=== PATIENT | male | born 1985 | race Caucasian/White ===

== ENCOUNTER → 2016-03-23 | Outpatient (REF) | payer MEDICARE, MEDICAID ==
[~2016-03-23] MED LIST: /SENOSTA PO; ALBU20IN INH; ALBUTEROL NEB INH; AMOX875T PO; BISA10SU PR; CIPRHCOTIC AD; CLARITHROMYCIN PO; CLON2TAB PO; DIVA125C5 PO; FLEEENE4 PR; IPRA2IN INH; LEVA12INH INH; LEVA750T PO; MIRA255PW PO; NYAM10003 TOP; PARO10TA2 PO; REGL10TA6 PO; TIZA2TA PO; TIZANIDINE PO; TYLE325T5 PR; [UNRECOGNIZED DRUG - CODE] PO
== END | disposition home or self-care (01) ==
LOC: M LAB REF 09:11
PROVIDERS: ATTEND Physician Assistant Medical
DX: J02.9 Acute pharyngitis, unspecified (principal)

== ENCOUNTER → 2016-03-29 | Outpatient (CLI) | payer MEDICARE, MEDICAID ==
--- NOTE | 2016-03-30 09:15 | REP ---
Chest x-ray: Three views. History: Fever and cough. Comparison chest x-ray July 30, 2014. Findings: This patient has severe rotoscoliosis of the thoracolumbar spine as before. There is related hypoinflation of the lung antony bilaterally but particularly on the left which is the concave side of the thoracic curvature. Left hemidiaphragm is elevated and there is rather little aeration of the left lung. No infiltrate is seen however on either side. No definite effusion is seen. No bony destructive lesion is seen. Impression: Suboptimal visualization of the lungs related to the severe rotoscoliosis and hypoinflation. No definite infiltrate, pleural effusion or pulmonary edema is seen. Signed by Dylon Degroot MD 03/30/2016 10:40 A
== END | disposition home or self-care (01) ==
LOC: M ADAMS 15:02
PROVIDERS: ATTEND Nurse Practitioner Family
DX: R50.9 Fever, unspecified (principal); R05 Cough
CPT/HCPCS: 71020; G0463

== ENCOUNTER 2016-04-22 18:23 | Inpatient (IN) | payer MEDICARE, MEDICAID ==
[~2016-04-22] VITALS: Ht 167.6 cm; Wt 73.0 kg
[~2016-04-22 18:23] MED LIST changes: -ACET65SU PR; -ALBU83IN INH; -DEPA125C PO; -FLUT44IN INH; -IPRASOL4 INH; -KLON2TAB PO; -MIRA33504 PO; -PAXI10TA2 PO; -PROA1AER INH; -ZANA2CAP PO
[2016-04-22] MEDS ORDERED: IPRATROPIUM 0.5MG/ALBUTEROL 2.5MG INH SOL UD 3ML (DUONEB)(J7620) As Ordered ONE (19:29)
[2016-04-22 20:04] LABS: ABG BASE EXCESS -1.5 (-2.0-2.0); ABG DEVICE NASAL CANN; ABG HCO3 21.8 MEQ/L (22.0-26.0); ABG PARTIAL PRESSURE CO2 33.1 mmHg (35.0-45.0); ABG PARTIAL PRESSURE O2 35.7 mmHg (75.0-100.0); ABG STANDARD HCO3 22.5 MEQ/L (22.0-26.0); ABG TOTAL CO2 22.8 MEQ/L (22.0-29.0); ABG pH (ARTERIAL) 7.437 UNITS (7.350-7.450)
[2016-04-22 20:05] LABS: BASO % 0.3 % (0.0-1.0); EOS # 0.1 K/mm3 (0.0-0.50); EOS % 1.2 % (0.0-3.0); LARGE UNSTAINED CELL # 0.3 K/mm3 (0.0-0.4); LARGE UNSTAINED CELL % 2.5 % (0.0-4.0); LYMPH # 1.6 K/mm3 (1.5-6.5); LYMPH % 11.5 % (24.0-44.0); MEAN CORPUSCULAR HEMOGLOBIN 30.1 pg (27.0-33.0); MEAN CORPUSCULAR HGB CONC 34.1 g/dl (32.0-36.5); MEAN CORPUSCULAR VOLUME 88.2 fl (80.0-96.0); MONO # 1.5 K/mm3 (0.0-0.8); MONO % 12.4 % (0.0-5.0); NEUTROPHILS # 8.5 K/mm3 (1.8-7.7); NEUTROPHILS % 72.2 % (36.0-66.0); PLATELET COUNT, AUTOMATED 260 k/mm3 (150-450); RED CELL DISTRIBUTION WIDTH 13.2 % (11.5-14.5); WHITE BLOOD COUNT 11.7 K/mm3 (4.0-10.0)
[2016-04-22 20:25] LABS: ANION GAP 9 MEQ/L (8-16); BLOOD UREA NITROGEN 11 MG/DL (7-18); CALCIUM LEVEL 9.2 MG/DL (8.5-10.1); CARBON DIOXIDE LEVEL 27 MEQ/L (21-32); CHLORIDE LEVEL 102 MEQ/L (98-107); CREATININE FOR GFR 0.51 MG/DL (0.70-1.30); GLOMERULAR FILTRATION RATE > 60.0 (>60); GLUCOSE, FASTING 103 MG/DL (70-105); POTASSIUM SERUM 4.2 MEQ/L (3.5-5.1); SODIUM LEVEL 138 MEQ/L (136-145)
[2016-04-22] MEDS ORDERED: AZITHROMYCIN INJ 500MG VIAL (J0456) As Ordered ONE (20:57)
[2016-04-22] MEDS ORDERED: guaiFENesin ER 600 MG TAB PO SCH (21:00)
[2016-04-22] MEDS ORDERED: PAXI10TA2 PO (22:02)
[2016-04-22] MEDS ORDERED: PROA1AER INH (22:02)
[2016-04-22] MEDS ORDERED: ZANA2CAP PO (22:02)
[2016-04-22] MEDS ORDERED: ALBU83IN INH (22:02)
[2016-04-22] MEDS ORDERED: MIRA33504 PO (22:02)
[2016-04-22] MEDS ORDERED: FLUT44IN INH (22:02)
[2016-04-22] MEDS ORDERED: ACET65SU PR (22:02)
[2016-04-22] MEDS ORDERED: IPRASOL4 INH (22:02)
[2016-04-22] MEDS ORDERED: KLON2TAB PO (22:02)
[2016-04-22] MEDS ORDERED: DEPA125C PO ×2 (22:02)
[2016-04-22] MEDS ORDERED: ACETAMINOPHEN 650 MG SUPP PR PRN (22:15)
[2016-04-22] MEDS ORDERED: BISACODYL 10 MG SUPP PR PRN (22:15)
[2016-04-22] MEDS ORDERED: ONDANSETRON 4MG/2ML VIAL (J2405) IV PRN (22:15)
[2016-04-22 23:00] VITALS: BP 149/95
--- NOTE | 2016-04-22 23:10 | REPUSA ---
CT of the chest without contrast Clinical statement: Shortness of breath. Technique: Multiple axial CT images were obtained with 5 mm cuts through the chest without administra tion of contrast. No comparison is available. Findings: There is no thoracic lymphadenopathy. The visualized portions of the thyroid gland is unrem arkable. There are no pericardial or pleural effusions. There is consolidation and infiltrate in the left upper lobe. Limited imaging of the upper abdomen does not demonstrate any acute abnormalities. T here are no suspicious osseous lesions. Severe dextroscoliosis is noted. Impression: 1. Left upper lobe pneumonia. 2. Severe scoliosis.
--- NOTE | 2016-04-22 23:18 | HPE ---
DATE OF ADMISSION: 04/22/2016 PRIMARY CARE PROVIDER: Dr. Edwards ROUGH ROUNDER: Dr. Palma. CHIEF COMPLAINT: Shortness of breath and congestion. HISTORY OF THE PRESENT ILLNESS: This is a 30-year-old male patient with underlying medical history of cerebral palsy, seizure disorder, history of recurrent pneumonia, patient has severe scoliosis, kyphosis due to cerebral palsy, subsequently has a lot of problems with restrictive lung disease, has a lot of problems clearing mucus, especially in the left lung. At baseline, the patient is bed-bound, going to [facility] ([facility]) from home, minimally verbal - one to two words, not on oxygen. The patient, as per family, returned from [facility] on Monday with some congestion. Subsequently, on Monday, the patient's symptoms got worse and progressively worsening, suctioning by family with clear mucus. The patient is not able to clear much of his mucus. He wears a vest for chest PT at home. No sick contact at home but possibly sick contact at [facility]. No fevers or chills reported by family. Not on oxygen at home. Requiring 40% Ventimask at emergency room. Further history not possible given the patient is nonverbal. Family denies noticing any diarrhea, nausea or vomiting. The patient is on grounded diet with thin liquid. PAST MEDICAL HISTORY: Restrictive lung disease due to Scoliosis and kyphosis. Kyphosis and scoliosis due to cerebral palsy. Anxiety and depression. History of seizure disorder. Multiple episodes of pneumonia in the past. PAST SURGICAL HISTORY: Right hip arthroplasty. Bilateral knee arthroplasty. Bilateral ear surgery. SOCIAL HISTORY: No drugs, no smoking, no alcohol. The patient requires assistance with activities of daily living, bed bound. FAMILY HISTORY: Noncontributory. REVIEW OF SYSTEMS: Negative except for those mentioned in the history of the present illness but very limited given patient is nonverbal, mostly, review of systems are from family. ALLERGIES: AMOXICILLIN, ASPARTAME, CEPHALOSPORIN, CLAVULANIC ACID, CONTRAST MEDIA, MUSHROOMS, PEANUTS, SEAFOOD, BACTRIM, TROPICAL FRUITS. HOME MEDICATIONS: - acetaminophen 650 mg per rectal every 6 hours as needed - albuterol nebulizer every 4 hours as needed - ProAir inhalation every 4 hours as needed - DuoNebs every 4 hours as needed - Klonopin 2 mg by mouth nightly - Depakote 375 mg by mouth daily and 500 mg by mouth nightly - Flovent inhalation twice a day - Paxil 10 mg by mouth twice a day - MiraLAX 17 grams by mouth daily as needed - Zanaflex 2 mg by mouth nightly PHYSICAL EXAMINATION: VITAL SIGNS: Temperature 99.6, pulse 140, respirations 20, blood pressure 153/98 , pulse oximetry 89% on 40% Ventimask. GENERAL: Patient mild dyspnea, on Ventimask, nonverbal, alert. HEENT: Normocephalic, atraumatic. PULMONARY: Bilateral crackles, diminished breath sounds on the left side. CARDIAC: Tachycardia, regular. S1, S2. ABDOMEN: Soft, mild distention. Hypoactive bowel sounds. Nontender. EXTREMITIES: Contracted. Trace edema bilateral lower extremities. LABORATORY: WBC 11.7, hemoglobin and hematocrit 13.8 over 40.5, platelets 260. Chemistry: Sodium 138, potassium 4.2, chloride 102, bicarbonate 27, BUN 11, creatinine 0.51, C-reactive protein 6.5, lactic acid 1.1. AB.44, 33.1, 35.7, 21.8. Chest x-ray shows profound scoliosis with limited visualization of the lung, completely opacified left hemithorax, questionable mucous plugging and left lung atelectasis. ASSESSMENT AND PLAN: This is a 30-year-old male patient with underlying medical history of cerebral palsy, severe scoliosis and kyphosis with restrictive lung disease and seizure disorder, presented with acute hypoxic respiratory failure, likely secondary to community-acquired bacterial pneumonia versus mucous plugging. Problems: 1. Acute hypoxic respiratory failure, likely secondary to restrictive lung disease with underlying kyphoscoliosis and left sided community acquired pneumonia, and also mucous plugging. Will obtain CT chest. Also, oxygen supplementation, chest PT, Acapella. Started on Rocephin. Followup cultures, sputum, respiratory panel. Based on CT scan, will consider consulting pulmonary if patient does not improve. In the meantime, continue nebulizer treatment, Mucinex, oxygen supplementation, chest PT, suctioning. pulse ox improved on 93% after patient coughed up copious amount of mucous 2. Seizure disorder. Continue home medication. 3. Constipation. Continue home medication. Bowel regimen as ordered. 4. Cerebral palsy. Supportive care. One-to-one sitter to prevent the patient from removing oxygen supplementation. 5. Sinus tachycardiac likely 2/2 to nebulizer treatment, infection and hypoxia, patient was tachycardiac during previous hospitalization IVF, thyroid profile, ekg, cardiac marker, tele, continue to monitor 5. Deep vein thrombosis (DVT) prophylaxis. Heparin subcu. DISPOSITION PLANNING: Pending CT scan, clinical improvement. MTDD
[2016-04-22] MEDS ORDERED: PARoxetine 10MG TABLET As Ordered ONE (23:37)
[2016-04-22] MEDS ORDERED: tiZANidine 4 MG TAB As Ordered ONE (23:38)
[2016-04-22] MEDS ORDERED: HEPARIN SOD (PORCINE) 5000 UNITS/ML VIAL As Ordered ONE (23:38)
[2016-04-22] MEDS ORDERED: LevoFLOXacin/DEXTROSE 750 MG/150 ML BAG (J1956) As Ordered ONE (23:39)
[2016-04-22 23:42] LABS: T UPTAKE 31 % (33-40)
[2016-04-22] MEDS: LevoFLOXacin IV 750 MG in APPROPRIATE DILUENT 1 EA IV SCH (23:50)
[2016-04-22] MEDS: guaiFENesin 200 MG TAB PO SCH (23:51)
[2016-04-22] MEDS: tiZANidine 4 MG TAB PO SCH (23:51)
[2016-04-22] MEDS: DIVALPROEX SPRINKLE 125 MG CAP PO SCH (23:51)
[2016-04-22] MEDS: HEPARIN SOD (PORCINE) 5000 UNITS/ML VIAL SC SCH (23:51)
[2016-04-22] MEDS: SENOKOT S TAB PO SCH (23:51)
[2016-04-22] MEDS: PARoxetine 10MG TABLET PO SCH (23:52)
[2016-04-22] MEDS: LR 1,000 ML IV SCH (23:56)
[2016-04-23] VITALS (16 sets, daily range): BP systolic 116–168; BP diastolic 67–86; O2SAT 84–95
[2016-04-23] MEDS ORDERED: IPRATROPIUM 0.5MG/ALBUTEROL 2.5MG INH SOL UD 3ML (DUONEB)(J7620) As Ordered ONE (00:25)
[2016-04-23] MEDS: FLUTICASONE HFA 44 MCG 10.6GM INHALER (FLOVENT) INH SCH ×3 (00:38→20:20)
[2016-04-23] MEDS: IPRATROPIUM 0.5MG/ALBUTEROL 2.5MG INH SOL UD 3ML (DUONEB)(J7620) NEB SCH ×4 (00:38→20:19)
--- NOTE | 2016-04-23 01:29 | EDDOCDS ---
Physician Documentation [facility] Name: Terry Vaughan Age: 30 yrs Sex: Male : 1985 Arrival Date: 04/22/2016 Time: 18:23 Bed 20 Private MD: Giselle Ray Disposition: 04/22/16 21:05 Hospitalization ordered by Sandra Richards for Inpatient Admission. Preliminary diagnosis are Hypoxemia, Acute and chronic respiratory failure with hypoxia. - [facility] - Status is Inpatient Admission. brooke - Condition is Stable. - Problem is chronic. - Symptoms have improved. Historical: - Allergies: Rocephin (Unknown); Augmentin (Vomit); Bactrim (Vomit); - Home Meds: 1. Depakote 375 mg am 500 mg pm Oral 2 times per day 2. Klonopin 2 mg Oral tab nightly 3. Paxil 10 mg Oral tab 1 tab twice a day 4. Zanaflex 2 mg Oral tab nightly 5. albuterol sulfate 2.5 mg /3 mL (0.083 %) Nebulizer nebu every 6 hours 6. ipratropium-albuterol 0.5 mg-3 mg(2.5 mg base)/3 mL Inhl nebu 7. Flovent 44 mcg/actuation Inhl aero 2 puffs 2 times per day 8. albuterol sulfate 90 mcg/actuation Inhl aepb every 4 hours 9. 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 No barriers to communication noted. - : The pt / caregiver states he / she is not on anticoagulants. Home medication list is obtained from the patient. - Exposure Risk Screening:: None identified. Vital Signs: 04/22 18:43 BP 153 / 98; Resp 20; Temp 99.6(TE); Pulse Ox 85% on R/A; Weight 74.84 kg / 164.99 lbs; rs3 Height 5 ft. 4 in. (162.56 cm); Pain 0/10; 18:48 Pulse 149; Pulse Ox 88% on 4 lpm NC; rs3 19:00 Pulse 138 MON; Pulse Ox 87% ; mgs 19:15 Pulse 144 MON; Pulse Ox 89% ; mgs 19:30 Pulse 146 MON; Pulse Ox 87% ; mgs 19:45 Pulse 146 MON; Pulse Ox 86% ; mgs 20:00 Pulse 140 MON; Pulse Ox 92% ; mgs 20:21 BP 7 / ???; nk1 20:30 Pulse 160 MON; Pulse Ox 87% ; mgs 21:00 Pulse 144 MON; Pulse Ox 84% ; mgs 21:17 BP 120 / 69 (auto/); mgs 21:17 Pulse 144 MON; Pulse Ox 89% ; mgs 18:43 Body Mass Index 28.32 (74.84 kg, 162.56 cm) rs3 MDM: 19:24 IV Saline Lock ordered. cs11 19:24 -Blood Culture (Adults Only), peripheral from different site, or from device/port/PICC cs11 etc. if present ordered. 19:24 Call Respiratory ordered. cs11 19:24 Albuterol-Ipratropium 1 neb Nebulizer every 20 minutes x3 ordered. cs11 19:24 Call Respiratory ordered. cs11 19:24 -Blood Culture Ordered. EDMS 19:24 Lactic Acid (Malcolm tube on ice) Ordered. EDMS 19:24 CBC with Diff Ordered. EDMS 19:24 MED Profile Ordered. EDMS 19:24 DEPAKOTE Ordered. EDMS 19:24 Ammonia ([place] Tube on Ice, Not [place]a [place]) Ordered. EDMS 19:24 -Arterial Blood Gas Ordered. EDMS 19:25 Call Respiratory complete. ml3 19:25 Call Respiratory complete. ml3 19:27 -Blood Culture (Adults Only), peripheral from different site, or from device/port/PICC ml3 etc. if present complete. 19:28 BLOOD CULTURES Ordered. EDMS 19:56 Financial registration complete. zo 20:11 [facility] Payment Agreement was scanned into [employer] and attached to record. zo 20:16 CBC with Diff Reviewed. cs11 20:16 -Arterial Blood Gas Reviewed. cs11 20:17 Oxygen (enter rate/delivery method/parameters) ordered. cs11 20:20 azithromycin 500 mg IVPB once over 1 hrs; dilute in 250mL of D5W or NS ordered. cs11 20:49 MED Profile Reviewed. cs11 20:49 Ammonia ([place] Tube on Ice, Not [place]a [place]) Reviewed. cs11 20:49 Lactic Acid (Malcolm tube on ice) Reviewed. cs11 20:49 DEPAKOTE Reviewed. cs11 20:55 BED REQUEST+ADM ordered. EDMS 21:58 RESPIRATORY PANEL Ordered. EDMS 21:58 SPUTUM CULTURE AND GRAM STAIN Ordered. EDMS 22:00 CT Chest Without Contrast Ordered. EDMS 22:02 AMMONIA Ordered. EDMS 22:02 C REACTIVE PROTEIN QUANTITATIV Ordered. EDMS 22:02 COMPLETE BLOOD COUNT Ordered. EDMS 22:02 BASIC METABOLIC PROFILE Ordered. EDMS 22:02 MAGNESIUM LEVEL Ordered. EDMS 22:03 LIVER PROFILE Ordered. EDMS 22:03 PHYSICAL THERAPY EVAL & TREAT ordered. EDMS 22:04 REGULAR DIET ordered. EDMS 22:09 Admission / Observation Status ordered. EDMS 22:15 ELECTROCARDIOGRAM ADULT ordered. EDMS 22:31 T-Sheet-- Draft Copy was scanned into [employer] and attached to record. klr 23:12 CARDIAC MARKER PANEL Ordered. EDMS Administered Medications: 20:02 Drug: Albuterol-Ipratropium 1 neb [ipratropium-albuterol 0.5 mg-3 mg(2.5 mg base)/3 mL nk1 nebulization soln (1 neb)] Route: Nebulizer; 20:08 Follow up: Response: Nebulizer completed nk1 20:12 Drug: Albuterol-Ipratropium 1 neb [ipratropium-albuterol 0.5 mg-3 mg(2.5 mg base)/3 mL nk1 nebulization soln (1 neb)] Route: Nebulizer; 20:19 Drug: Albuterol-Ipratropium 1 neb [ipratropium-albuterol 0.5 mg-3 mg(2.5 mg base)/3 mL nk1 nebulization soln (1 neb)] Route: Nebulizer; 20:21 Follow up: BP 7 / ??? nk1 20:21 Follow up: Response: Nebulizer completed nk1 21:13 Drug: azithromycin 500 mg [azithromycin 500 mg intravenous solution] Route: IVPB; mgs Infused Over: 1 hrs; Site: left hand; Signatures: Dispatcher MedHoUpdox EDMS Cathi Rosario RN RN jan Lopresti, Mary-Elizabeth, [employer] Stock Clerk Unit ml3 Zeina Armijo RosemaryRN RN rs3 Gian Dyson, DO cs11 Attila Crawford RN RN Tiffany Ramirez Steven, DOROTHY RN Belle Salomon nk1 The chart was reviewed and I authenticate all verbal orders and agree with the evaluation and treatment provided.Corrections: (The following items were deleted from the chart) 22:00 21:58 C REACTIVE PROTEIN QUANTITATIV ordered. EDMS EDMS 22:09 21:04 CT ANGIO CHEST+CT ordered. EDMS EDMS 23:26 23:12 CARDIAC MARKER PANEL ordered. EDMS EDMS 23:27 23:12 THYROID PROFILE ordered. EDMS EDMS Attachments: 20:11 [facility] [place] Payment Agreement zo 22:31 T-Sheet-- Draft Copy klr MTDD
--- NOTE | 2016-04-23 01:29 | EDDOCDS ---
Nurse's Notes [facility] Name: Terry Vaughan Age: 30 yrs Sex: Male : 1985 Arrival Date: 04/22/2016 Time: 18:23 Bed 20 Private MD: Giselle Ray Diagnosis: Hypoxemia;Acute and chronic respiratory failure with hypoxia Presentation: 04/22 18:28 Presenting complaint: EMS states: was seen at primary provider office for difficulty rs3 breathing/fever today. had chest x-ray done. Albuterol treatment given at Dr's office. Duoneb treatment given en route. H/o cerebral palsy, pneumonia. Adult Sepsis Screening: The patient does not have new or worsening altered mentation. Patient's respiratory rate is less than 22. Systolic blood pressure is greater than 100. Patient has a qSOFA score of 0- Negative Sepsis Screen. Suicide/Homicide risk assessment- the patient denies having any suicidal and/or homicidal ideations and does not present with any other emotional, behavioral or mental health complaints. Status: Patient is not a student services representative or dependent. Transition of care: patient was not received from another setting of care. 18:28 Acuity: NIRMALA Level 3 rs3 18:28 Method Of Arrival: Ambulance rs3 Triage Assessment: 18:56 HIV screening NA for this visit. Respiratory: Onset: The symptoms/episode rs3 began/occurred gradually. Historical: - Allergies: Rocephin (Unknown); Augmentin (Vomit); Bactrim (Vomit); - Home Meds: 1. Depakote 375 mg am 500 mg pm Oral 2 times per day 2. Klonopin 2 mg Oral tab nightly 3. Paxil 10 mg Oral tab 1 tab twice a day 4. Zanaflex 2 mg Oral tab nightly 5. albuterol sulfate 2.5 mg /3 mL (0.083 %) Nebulizer nebu every 6 hours 6. ipratropium-albuterol 0.5 mg-3 mg(2.5 mg base)/3 mL Inhl nebu 7. Flovent 44 mcg/actuation Inhl aero 2 puffs 2 times per day 8. albuterol sulfate 90 mcg/actuation Inhl aepb every 4 hours 9. 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 No barriers to communication noted. - : The pt / caregiver states he / she is not on anticoagulants. Home medication list is obtained from the patient. - Exposure Risk Screening:: None identified. Screenin:53 Screening information is obtained from family members. Fall risk: At risk due to rs3 apparent chemical impairment, gait disturbance, immobility. Assistance ADL's: Requires assistance with meal preparation, this assistance is provided by family members, bathing, assistance is provided by family members, dressing, assistance is provided by family members, toileting, assistance is provided by family members, housework, assistance is provided by family members, medication administration, assistance is provided by family members. Abuse/DV Screen: The patient / caregiver reports he/she is: not in a situation that causes fear, pain or injury. Nutritional screening: No deficits noted. Advance Directives: Currently, there is a health care proxy, Dianna Cooper (mother). home support is adequate. Assessment: 18:54 General: Appears in no apparent distress, Behavior is cooperative. Pain: Unable to use rs3 pain scale. non verbal. Cardiovascular: Chest pain unable to assess. Respiratory: Airway is patent Respiratory effort is even, labored, Respiratory pattern is regular, symmetrical, Breath sounds are coarse bilaterally. Derm: Skin is pink, warm & dry. 19:22 General: Appears in no apparent distress, Behavior is cooperative. Cardiovascular: mgs Capillary refill < 3 seconds. Respiratory: Airway is patent Respiratory effort is even, unlabored, Respiratory pattern is regular, symmetrical, Breath sounds are coarse bilaterally. Derm: Skin is pink, warm & dry. 20:09 General: Appears in no apparent distress, Behavior is cooperative. Cardiovascular: mgs Capillary refill < 3 seconds. Respiratory: Airway is patent Respiratory effort is even, unlabored, Respiratory pattern is regular, symmetrical. Derm: Skin is pink, warm & dry. 21:15 General: Appears in no apparent distress, Behavior is cooperative. Cardiovascular: mgs Capillary refill < 3 seconds. Respiratory: Airway is patent Respiratory effort is even, unlabored, Respiratory pattern is regular, symmetrical. Derm: Skin is pink, warm & dry. 22:12 Adult Sepsis Screening: The patient does not have new or worsening altered mentation. mgs Patient's respiratory rate is less than 22. Systolic blood pressure is greater than 100. Patient has a qSOFA score of 0- Negative Sepsis Screen. General: Appears in no apparent distress, Behavior is cooperative. Cardiovascular: Capillary refill < 3 seconds. Respiratory: Airway is patent Respiratory effort is even, unlabored, Respiratory pattern is regular, symmetrical. Derm: Skin is pink, warm & dry. 23:00 General: see [facility] for further documentation. mar 21 00:45 Cardiovascular: Rhythm is sinus tachycardia No ectopy. mar Vital Signs: 04/22 18:43 BP 153 / 98; Resp 20; Temp 99.6(TE); Pulse Ox 85% on R/A; Weight 74.84 kg; Height 5 ft. rs3 4 in. (162.56 cm); Pain 0/10; 18:48 Pulse 149; Pulse Ox 88% on 4 lpm NC; rs3 19:00 Pulse 138 MON; Pulse Ox 87% ; mgs 19:15 Pulse 144 MON; Pulse Ox 89% ; mgs 19:30 Pulse 146 MON; Pulse Ox 87% ; mgs 19:45 Pulse 146 MON; Pulse Ox 86% ; mgs 20:00 Pulse 140 MON; Pulse Ox 92% ; mgs 20:21 BP 7 / ???; nk1 20:30 Pulse 160 MON; Pulse Ox 87% ; mgs 21:00 Pulse 144 MON; Pulse Ox 84% ; mgs 21:17 BP 120 / 69 (auto/); mgs 21:17 Pulse 144 MON; Pulse Ox 89% ; mgs 18:43 Body Mass Index 28.32 (74.84 kg, 162.56 cm) rs3 Vitals: 18:43 Log In Time N/A - ambulance arrival. rs3 ED Course: 18:24 Patient visited by Alis Carlson, Interlocking Machine Operator. lbd 18:24 Giselle Ray is Private Physician. lbd 18:24 Ivonne Jackson,DOROTHY is Primary Nurse. lbd 18:24 Patient moved to Waiting lbd 18:24 Patient moved to 14 lbd 18:31 Triage Initiated rs3 19:01 Gian Dyson DO is Attending Physician. cs11 19:02 Patient visited by Gian Dyson DO. cs11 19:23 Patient visited by Attila Crawford RN. mgs 19:49 Ammonia ([place] Tube on Ice, Not [place]a [place]) Sent. mgs 19:49 DEPAKOTE Sent. mgs 19:49 MED Profile Sent. mgs 19:49 CBC with Diff Sent. mgs 19:49 Lactic Acid (Malcolm tube on ice) Sent. mgs 19:50 -Blood Culture Sent. mgs 19:50 Inserted saline lock: 22 gauge in left hand and blood collected. The patient tolerated mgs the procedure well. 20:09 Patient visited by Attila Crawford RN. mgs 20:11 [facility] Payment Agreement was scanned into [employer] and attached to record. zo 20:14 BLOOD CULTURES Sent. cln 21:05 Sandra Richards is Hospitalizing Provider. cs11 21:16 Patient visited by Attila Crawford RN. mgs 22:13 Patient visited by Attila Crawford RN. mgs 22:14 Patient moved to Admit Hold ml3 22:31 T-Sheet-- Draft Copy was scanned into [employer] and attached to record. klr 22:51 Patient moved to Mar 23:14 CT Chest Without Contrast Returned. EDMS Administered Medications: 20:02 Drug: Albuterol-Ipratropium 1 neb [ipratropium-albuterol 0.5 mg-3 mg(2.5 mg base)/3 mL nk1 nebulization soln (1 neb)] Route: Nebulizer; 20:08 Follow up: Response: Nebulizer completed nk1 20:12 Drug: Albuterol-Ipratropium 1 neb [ipratropium-albuterol 0.5 mg-3 mg(2.5 mg base)/3 mL nk1 nebulization soln (1 neb)] Route: Nebulizer; 20:19 Drug: Albuterol-Ipratropium 1 neb [ipratropium-albuterol 0.5 mg-3 mg(2.5 mg base)/3 mL nk1 nebulization soln (1 neb)] Route: Nebulizer; 20:21 Follow up: BP 7 / ??? nk1 20:21 Follow up: Response: Nebulizer completed nk1 21:13 Drug: azithromycin 500 mg [azithromycin 500 mg intravenous solution] Route: IVPB; mgs Infused Over: 1 hrs; Site: left hand; RT: 20:02 Initial Med Neb Given as ordered Patient tolerated procedure well without adverse nk1 effect. Respiratory: Airway is patent Respiratory effort is even, labored, Respiratory pattern is tachypnea with weak coughing Breath sounds are coarse Breath sounds with rhonchi bilaterally. in right upper lobe, left upper lobe, left posterior upper lobe, right posterior upper lobe, left posterior lower lobe, right posterior middle lobe and right posterior lower lobe. 20:03 ABG's drawn from left radial artery pressure held for 5 minutes no bleeding noted nk1 pressure bandage applied specimen sent pt. tolerated well. 20:03 O2 via nasal cannula \T\ 4L/min. nk1 20:12 Subsequent Med Neb Given as ordered Patient tolerated procedure well without adverse nk1 effect. Respiratory: Breath sounds are coarse Breath sounds with rhonchi bilaterally. in right upper lobe, left upper lobe, left posterior upper lobe, right posterior upper lobe, left posterior lower lobe, right posterior middle lobe and right posterior lower lobe. 20:18 Subsequent Med Neb Given as ordered Patient tolerated procedure well without adverse nk1 effect. 20:20 Respiratory: Respiratory effort is even, labored, Respiratory pattern is tachypnea nk1 Breath sounds are coarse Breath sounds with rhonchi bilaterally. Order Results: Lab Order: Lactic Acid (Malcolm tube on ice); SPEC'M 04/22/16 19:45 Test: LACTIC ACID SEPSIS PROTOCOL; Value: 1.1; Range: 0.4-2.0; Units: MMOL/L; Status: F Lab Order: CBC with Diff; SPEC'M 04/22/16 19:45 Test: WHITE BLOOD COUNT; Value: 11.7; Range: 4.0-10.0; Abnormal: Above high normal; Units: K/mm3; Status: F Test: RED BLOOD COUNT; Value: 4.59; Range: 4.30-6.10; Units: M/mm3; Status: F Test: HEMOGLOBIN; Value: 13.8; Range: 14.0-18.0; Abnormal: Below low normal; Units: g/dl; Status: F Test: HEMATOCRIT; Value: 40.5; Range: 42.0-52.0; Abnormal: Below low normal; Units: %; Status: F Test: MEAN CORPUSCULAR VOLUME; Value: 88.2; Range: 80.0-96.0; Units: fl; Status: F Test: MEAN CORPUSCULAR HEMOGLOBIN; Value: 30.1; Range: 27.0-33.0; Units: pg; Status: F Test: MEAN CORPUSCULAR HGB CONC; Value: 34.1; Range: 32.0-36.5; Units: g/dl; Status: F Test: RED CELL DISTRIBUTION WIDTH; Value: 13.2; Range: 11.5-14.5; Units: %; Status: F Test: PLATELET COUNT, AUTOMATED; Value: 260; Range: 150-450; Units: k/mm3; Status: F Test: NEUTROPHILS %; Value: 72.2; Range: 36.0-66.0; Abnormal: Above high normal; Units: %; Status: F Test: LYMPH %; Value: 11.5; Range: 24.0-44.0; Abnormal: Below low normal; Units: %; Status: F Test: MONO %; Value: 12.4; Range: 0.0-5.0; Abnormal: Above high normal; Units: %; Status: F Test: EOS %; Value: 1.2; Range: 0.0-3.0; Units: %; Status: F Test: BASO %; Value: 0.3; Range: 0.0-1.0; Units: %; Status: F Test: LARGE UNSTAINED CELL %; Value: 2.5; Range: 0.0-4.0; Units: %; Status: F Test: NEUTROPHILS #; Value: 8.5; Range: 1.8-7.7; Abnormal: Above high normal; Units: K/mm3; Status: F Test: LYMPH #; Value: 1.6; Range: 1.5-6.5; Units: K/mm3; Status: F Test: MONO #; Value: 1.5; Range: 0.0-0.8; Abnormal: Above high normal; Units: K/mm3; Status: F Test: EOS #; Value: 0.1; Range: 0.0-0.50; Units: K/mm3; Status: F Test: BASO #; Value: 0.0; Range: 0.0-0.2; Units: K/mm3; Status: F Test: LARGE UNSTAINED CELL #; Value: 0.3; Range: 0.0-0.4; Units: K/mm3; Status: F Lab Order: MED Profile; SPEC'04/22/16 19:45 Test: GLUCOSE, FASTING; Value: 103; Range: 70-105; Units: MG/DL; Status: F Test: BLOOD UREA NITROGEN; Value: 11; Range: 7-18; Units: MG/DL; Status: F Test: CREATININE FOR GFR; Value: 0.51; Range: 0.70-1.30; Abnormal: Below low normal; Units: MG/DL; Status: F Test: GLOMERULAR FILTRATION RATE; Value: > 60.0; Range: >60; Status: F Test: SODIUM LEVEL; Value: 138; Range: 136-145; Units: MEQ/L; Status: F Test: POTASSIUM SERUM; Value: 4.2; Range: 3.5-5.1; Units: MEQ/L; Status: F Test: CHLORIDE LEVEL; Value: 102; Range: 98-107; Units: MEQ/L; Status: F Test: CARBON DIOXIDE LEVEL; Value: 27; Range: 21-32; Units: MEQ/L; Status: F Test: ANION GAP; Value: 9; Range: 8-16; Units: MEQ/L; Status: F Test: CALCIUM LEVEL; Value: 9.2; Range: 8.5-10.1; Units: MG/DL; Status: F Test Note: ; Units are mL/min/1.73 m2 Chronic Kidney Disease Staging per NKF: Stage I & II GFR >=60 Normal to Mildly Decreased Stage III GFR 30-59 Moderately Decreased Stage IV GFR 15-29 Severely Decreased Stage V GFR <15 Very Little GFR Left ESRD GFR <15 on GRADUATE ASSISTANT Lab Order: DEPAKOTE; SPEC'04/22/16 19:45 Test: VALPROIC ACID (DEPAKOTE); Value: 96.5; Range: 50.0-100.0; Units: UG/ML; Status: F Lab Order: Ammonia ([place] Tube on Ice, Not [place]); 04/22/16 19:45 Test: AMMONIA; Value: 44; Range: <32; Abnormal: Above high normal; Units: uMOL/L; Status: F Lab Order: -Arterial Blood Gas; SPEC04/22/16 19:49 Test: ABG pH (ARTERIAL); Value: 7.437; Range: 7.350-7.450; Units: UNITS; Status: F Test: ABG PARTIAL PRESSURE CO2; Value: 33.1; Range: 35.0-45.0; Abnormal: Below low normal; Units: mmHg; Status: F Test: ABG PARTIAL PRESSURE O2; Value: 35.7; Range: 75.0-100.0; Abnormal: Critical Low; Units: mmHg; Status: F Test: ABG TOTAL CO2; Value: 22.8; Range: 22.0-29.0; Units: MEQ/L; Status: F Test: ABG HCO3; Value: 21.8; Range: 22.0-26.0; Abnormal: Below low normal; Units: MEQ/L; Status: F Test: ABG BASE EXCESS; Value: -1.5; Range: -2.0-2.0; Status: F Test: ABG STANDARD HCO3; Value: 22.5; Range: 22.0-26.0; Units: MEQ/L; Status: F Test: ABG O2 SATURATION; Value: 70.3; Range: 95.0-99.0; Abnormal: Below low normal; Units: %; Status: F Test: ABG DEVICE; Value: NASAL BASIL; Status: F Lab Order: C REACTIVE PROTEIN QUANTITATIV; SPEC'M 04/22/16 19:45 Test: C REACTIVE PROTEIN QUANTITATIV; Value: 6.52; Range: 0.00-0.30; Abnormal: Above high normal; Units: MG/DL; Status: F Lab Order: CARDIAC MARKER PANEL; SPEC' 04/22/16 19:45 Test: CPK CREATINE PHOSPHOKINASE; Value: 198; Range: 39-308; Units: U/L; Status: F Test: CK-MB VALUE MASS; Value: 1.7; Range: 0.0-3.6; Units: NG/ML; Status: F Test: MB/CK RELATIVE INDEX; Range: < OR =4; Status: I Test: TROPONIN I; Value: < 0.02; Range: < 0.10; Units: NG/ML; Status: F Test Note: ; Troponin I Reference Interval for [employer] LOCI: 99th Percentile= 0.00-0.045 ng/ml Risk Stratification: <= 0.10 ng/ml Decreased Risk for Adverse Clinical Events. 0.10-1.50 ng/ml Increased Risk for Adverse Clinical Events. Evaluation of additional criterion and/or repeat testing in 2-6 hours is suggested to rule out myocardial damage. >= 1.50 ng/ml Indicative of Myocardial Injury. Lab Order: THYROID PROFILE; SPEC'M 04/22/16 19:45 Test: T UPTAKE; Value: 31; Range: 33-40; Abnormal: Below low normal; Units: %; Status: F Test: THYROXINE (T4); Value: 11.9; Range: 4.5-12.0; Units: UG/DL; Status: F Test: FREE THYROXINE INDEX; Range: 1.4-3.8; Units: %; Status: I Test: THYROID STIMULATING HORMONE; Value: 3.860; Range: 0.358-3.740; Abnormal: Above high normal; Units: uIU/ML; Status: F Radiology Order: CT Chest Without Contrast Test: CT Chest Without Contrast REASON FOR EXAMINATION: Shortness of Breath; ; CT of the chest without contrast; Clinical statement: Shortness of breath.; Technique: Multiple axial CT images were obtained with 5 mm cuts through the chest without administra; tion of contrast.; No comparison is available.; Findings: There is no thoracic lymphadenopathy. The visualized portions of the thyroid gland is unrem; arkable. There are no pericardial or pleural effusions. There is consolidation and infiltrate in the; left upper lobe. Limited imaging of the upper abdomen does not demonstrate any acute abnormalities. T; here are no suspicious osseous lesions. Severe dextroscoliosis is noted.; Impression:; 1. Left upper lobe pneumonia.; 2. Severe scoliosis.; ; Outcome: 21:05 Decision to Hospitalize by Provider. cs11 04/23 01:28 Patient left the ED. brooke Signatures: Dispatcher [employer] EDMS Alis Carlson, Interlocking Machine Operator Unit lbd Cathi Rosario RN RN jan Lopresti, Mary-Elizabeth, Interlocking Machine Operator Unit ml3 Belle Sagastume,RT RT nk1 Zeina Armijo Rosemary, RN RN rs3 Gian Dyson DO DO cs11 Attila Crawford RN RN mgs Amaris Travis CONFIGURATION CONSULTANT CONFIGURATION CONSULTANT cln Tiffany Hsu MTDD
[2016-04-23] MEDS: clonazePAM 1 MG TAB PO SCH ×2 (01:55→20:45)
[2016-04-23] MEDS: HEPARIN SOD (PORCINE) 5000 UNITS/ML VIAL SC SCH ×3 (05:36→20:46)
[2016-04-23 05:55] LABS: MEAN CORPUSCULAR HEMOGLOBIN 29.5 pg (27.0-33.0); MEAN CORPUSCULAR HGB CONC 33.4 g/dl (32.0-36.5); MEAN CORPUSCULAR VOLUME 88.3 fl (80.0-96.0); RED CELL DISTRIBUTION WIDTH 13.2 % (11.5-14.5); WHITE BLOOD COUNT 10.9 K/mm3 (4.0-10.0)
[2016-04-23 06:15] LABS: ALBUMIN 3.1 GM/DL (3.2-5.2); ALBUMIN/GLOBULIN RATIO 0.74 (1.00-1.93); ALKALINE PHOSPHATASE 85 U/L (45-117); ALT/SGPT 12 U/L (12-78); ANION GAP 10 MEQ/L (8-16); AST/SGOT 9 U/L (15-37); BILIRUBIN,DIRECT 0.2 MG/DL (0.0-0.2); BILIRUBIN,TOTAL 0.4 MG/DL (0.2-1.0); BLOOD UREA NITROGEN 9 MG/DL (7-18); CALCIUM LEVEL 8.7 MG/DL (8.5-10.1); CARBON DIOXIDE LEVEL 26 MEQ/L (21-32); CHLORIDE LEVEL 104 MEQ/L (98-107); CREATININE FOR GFR 0.52 MG/DL (0.70-1.30); GLOMERULAR FILTRATION RATE > 60.0 (>60); GLUCOSE, FASTING 109 MG/DL (70-105); MAGNESIUM LEVEL 1.9 MG/DL (1.8-2.4); POTASSIUM SERUM 4.2 MEQ/L (3.5-5.1); SODIUM LEVEL 140 MEQ/L (136-145); TOTAL PROTEIN 7.3 GM/DL (6.4-8.2)
[2016-04-23] MEDS ORDERED: PANTOPRAZOLE 40MG TAB (PROTONIX) PO SCH (09:00)
[2016-04-23] MEDS: DIVALPROEX SPRINKLE 125 MG CAP PO SCH ×2 (09:58→20:50)
[2016-04-23] MEDS: LACTOBACILLUS ACIDOPHILUS CAP (BACID) PO SCH ×3 (09:58→17:25)
[2016-04-23] MEDS: MIRALAX *UNIT DOSE* 17GM PACKET PO SCH (09:58)
[2016-04-23] MEDS: guaiFENesin 200 MG TAB PO SCH ×3 (09:58→20:45)
[2016-04-23] MEDS: LR 1,000 ML IV SCH (09:58)
[2016-04-23] MEDS: OMEPRAZOLE 20 MG CAP PO SCH (09:59)
[2016-04-23] MEDS: PARoxetine 10MG TABLET PO SCH ×2 (09:59→20:45)
[2016-04-23] MEDS: SENOKOT S TAB PO SCH ×2 (09:59→20:45)
--- NOTE | 2016-04-23 10:41 | IPN ---
DATE: 04/23/2016 Terry is seen in PCU. He looks better than yesterday when he was in the office. Family says he looks significantly improved as well. He had a lot of suctioning done and his respiratory status improved significantly. He had a coronavirus isolated out of his respiratory panel. PHYSICAL EXAMINATION: Vital signs as listed, 90% oxygen saturation. He is alert, in no respiratory distress at all. Lungs are actually very clear right now from suctioning. Heart regular rhythm. Abdomen soft, nontender. No peripheral edema. LABORATORIES: CBC looks unremarkable. CMP unremarkable. IMPRESSION: 1. Left upper lobe community acquired pneumonia. He has isolated coronavirus. It could be a viral pneumonia, however it is quite a dense pneumonia and I suspect secondary bacterial infection. I agree with Levaquin for community acquired pneumonia. I think we can stop his IV fluids. 2. History of seizure disorder, stable. Levaquin can precipitate seizures and we will have to keep our eye out for a change in mental status. 3. Cerebral palsy. He is bed bound and that complicates rehabilitation. 4. 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 Again, this affects rehabilitation potential.
[2016-04-23] MEDS ORDERED: SLF 3 ML SYR IV PRN (12:00)
[2016-04-23] MEDS: SLF 3 ML SYR IV SCH ×2 (14:57→20:50)
[2016-04-23] MEDS: tiZANidine 4 MG TAB PO SCH (20:45)
[2016-04-24] VITALS (20 sets, daily range): BP systolic 122–147; BP diastolic 62–87; O2SAT 90–97
[2016-04-24 00:16] LABS: THYROXINE (T4) 11.9 UG/DL (4.5-12.0)
[2016-04-24] MEDS: LevoFLOXacin IV 750 MG in APPROPRIATE DILUENT 1 EA IV SCH ×2 (00:18→23:52)
[2016-04-24] MEDS: IPRATROPIUM 0.5MG/ALBUTEROL 2.5MG INH SOL UD 3ML (DUONEB)(J7620) NEB SCH ×4 (00:47→19:43)
[2016-04-24] MEDS: SLF 3 ML SYR IV SCH ×3 (05:11→22:20)
[2016-04-24] MEDS: HEPARIN SOD (PORCINE) 5000 UNITS/ML VIAL SC SCH ×3 (05:11→22:19)
[2016-04-24 05:20] LABS: MEAN CORPUSCULAR HEMOGLOBIN 30.1 pg (27.0-33.0); MEAN CORPUSCULAR HGB CONC 33.6 g/dl (32.0-36.5); MEAN CORPUSCULAR VOLUME 89.7 fl (80.0-96.0); RED CELL DISTRIBUTION WIDTH 13.3 % (11.5-14.5); WHITE BLOOD COUNT 9.3 K/mm3 (4.0-10.0)
[2016-04-24 05:43] LABS: ANION GAP 11 MEQ/L (8-16); BLOOD UREA NITROGEN 11 MG/DL (7-18); CALCIUM LEVEL 9.1 MG/DL (8.5-10.1); CARBON DIOXIDE LEVEL 26 MEQ/L (21-32); CHLORIDE LEVEL 105 MEQ/L (98-107); CREATININE FOR GFR 0.56 MG/DL (0.70-1.30); GLOMERULAR FILTRATION RATE > 60.0 (>60); GLUCOSE, FASTING 89 MG/DL (70-105); MAGNESIUM LEVEL 2.1 MG/DL (1.8-2.4); POTASSIUM SERUM 4.4 MEQ/L (3.5-5.1); SODIUM LEVEL 142 MEQ/L (136-145)
[2016-04-24] MEDS: FLUTICASONE HFA 44 MCG 10.6GM INHALER (FLOVENT) INH SCH ×2 (07:26→19:43)
[2016-04-24] MEDS: guaiFENesin 200 MG TAB PO SCH ×3 (10:05→21:00)
[2016-04-24] MEDS: SENOKOT S TAB PO SCH ×2 (10:05→22:20)
[2016-04-24] MEDS: DIVALPROEX SPRINKLE 125 MG CAP PO SCH ×2 (10:06→22:20)
[2016-04-24] MEDS: LACTOBACILLUS ACIDOPHILUS CAP (BACID) PO SCH ×3 (10:06→17:13)
[2016-04-24] MEDS: OMEPRAZOLE 20 MG CAP PO SCH (10:06)
[2016-04-24] MEDS: MIRALAX *UNIT DOSE* 17GM PACKET PO SCH (10:07)
[2016-04-24] MEDS: PARoxetine 10MG TABLET PO SCH ×2 (10:07→22:19)
--- NOTE | 2016-04-24 11:18 | ECGEPIP ---
Stationary ECG Study [facility] Test Date: 2016-04-22 Pat Name: GARETH CHIRINOS Department: Room: [place] [address] Gender: M Card Puncher: essence : 1985 Requested By: EV AVINA Order Number: [id number] Reading MD: Yuliana Bynum Measurements Intervals [place] Rate: 133 P: 46 MO: 142 QRS: 124 QRSD: 86 T: 52 QT: 295 QTc: 439 Interpretive Statements SINUS TACHYCARDIA RIGHT AXIS DEVIATION SIMILAR 08/21/13 Electronically Signed On 04-24-2016 11:18:24 EST by Yuliana Bynum
--- NOTE | 2016-04-24 14:16 | IPN ---
DATE: 04/24/2016 Terry was seen in progressive care unit (PCU). He looks better, a lot better color. His sitter is at the bedside and thinks he is more alert. Parents were not in the room when I rounded. They have been in most of the day. Mother is asking for something that facilitates sleep, which I would rather avoid until his pneumonia is under better treatment. PHYSICAL EXAM: Vital signs stable. Afebrile. Lungs scattered rhonchi. Better air movement. Heart regular rhythm. Abdomen soft, nontender. No bowel movement yet per sitter. Neurologic exam unchanged. His color looks better. LABS: White count is down to 9.3. Electrolytes look unremarkable. IMPRESSION: 1. Left upper lobe community acquired pneumonia. He is on Levaquin. He is tolerating this. IV fluids have been discontinued. Day #2 of IV Levaquin. He got a dose 04/22/2016 and a dose of 04/24/2016. 2. History of seizure disorder. He is on Levaquin and it has not caused any seizures. Will need to keep an eye out for this. 3. Cerebral palsy. Bed bound. Complicates rehabilitation. 4. Restrictive lung disease with scoliosis, kyphoscoliosis. Increases his risk of pneumonia and slow to response to treatment. 5. Sleep disturbance. I would like to avoid sedative while he is under early treatment of his pneumonia. Sleep disturbance might be from the Levaquin. I did not want to prescribe anything for sleep tonight at least. This can be assessed on a day by day basis.
[2016-04-24] MEDS: clonazePAM 1 MG TAB PO SCH (22:19)
[2016-04-24] MEDS: tiZANidine 4 MG TAB PO SCH (22:20)
[2016-04-25] VITALS (10 sets, daily range): BP systolic 117–143; BP diastolic 61–79; O2SAT 90–95
[2016-04-25] MEDS: IPRATROPIUM 0.5MG/ALBUTEROL 2.5MG INH SOL UD 3ML (DUONEB)(J7620) NEB SCH ×4 (01:52→20:15)
--- NOTE | 2016-04-25 02:29 | EDDOCDS ---
Nurse's Notes [facility] Name: Terry Vaughan Age: 30 yrs Sex: Male : 1985 Arrival Date: 04/22/2016 Time: 18:23 Bed 20 Private MD: Giselle Ray Diagnosis: Hypoxemia;Acute and chronic respiratory failure with hypoxia Presentation: 04/22 18:28 Presenting complaint: EMS states: was seen at primary provider office for difficulty rs3 breathing/fever today. had chest x-ray done. Albuterol treatment given at Dr's office. Duoneb treatment given en route. H/o cerebral palsy, pneumonia. Adult Sepsis Screening: The patient does not have new or worsening altered mentation. Patient's respiratory rate is less than 22. Systolic blood pressure is greater than 100. Patient has a qSOFA score of 0- Negative Sepsis Screen. Suicide/Homicide risk assessment- the patient denies having any suicidal and/or homicidal ideations and does not present with any other emotional, behavioral or mental health complaints. 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 Transition of care: patient was not received from another setting of care. 18:28 Acuity: NIRMALA Level 3 rs3 18:28 Method Of Arrival: Ambulance rs3 Triage Assessment: 18:56 HIV screening NA for this visit. Respiratory: Onset: The symptoms/episode rs3 began/occurred gradually. Historical: - Allergies: Rocephin (Unknown); Augmentin (Vomit); Bactrim (Vomit); - Home Meds: 1. Depakote 375 mg am 500 mg pm Oral 2 times per day 2. Klonopin 2 mg Oral tab nightly 3. Paxil 10 mg Oral tab 1 tab twice a day 4. Zanaflex 2 mg Oral tab nightly 5. albuterol sulfate 2.5 mg /3 mL (0.083 %) Nebulizer nebu every 6 hours 6. ipratropium-albuterol 0.5 mg-3 mg(2.5 mg base)/3 mL Inhl nebu 7. Flovent 44 mcg/actuation Inhl aero 2 puffs 2 times per day 8. albuterol sulfate 90 mcg/actuation Inhl aepb every 4 hours 9. 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 No barriers to communication noted. - : The pt / caregiver states he / she is not on anticoagulants. Home medication list is obtained from the patient. - Exposure Risk Screening:: None identified. Screenin:53 Screening information is obtained from family members. Fall risk: At risk due to rs3 apparent chemical impairment, gait disturbance, immobility. Assistance ADL's: Requires assistance with meal preparation, this assistance is provided by family members, bathing, assistance is provided by family members, dressing, assistance is provided by family members, toileting, assistance is provided by family members, housework, assistance is provided by family members, medication administration, assistance is provided by family members. Abuse/DV Screen: The patient / caregiver reports he/she is: not in a situation that causes fear, pain or injury. Nutritional screening: No deficits noted. Advance Directives: Currently, there is a health care proxy, Dianna Cooper (mother). home support is adequate. Assessment: 18:54 General: Appears in no apparent distress, Behavior is cooperative. Pain: Unable to use rs3 pain scale. non verbal. Cardiovascular: Chest pain unable to assess. Respiratory: Airway is patent Respiratory effort is even, labored, Respiratory pattern is regular, symmetrical, Breath sounds are coarse bilaterally. Derm: Skin is pink, warm & dry. 19:22 General: Appears in no apparent distress, Behavior is cooperative. Cardiovascular: mgs Capillary refill < 3 seconds. Respiratory: Airway is patent Respiratory effort is even, unlabored, Respiratory pattern is regular, symmetrical, Breath sounds are coarse bilaterally. Derm: Skin is pink, warm & dry. 20:09 General: Appears in no apparent distress, Behavior is cooperative. Cardiovascular: mgs Capillary refill < 3 seconds. Respiratory: Airway is patent Respiratory effort is even, unlabored, Respiratory pattern is regular, symmetrical. Derm: Skin is pink, warm & dry. 21:15 General: Appears in no apparent distress, Behavior is cooperative. Cardiovascular: mgs Capillary refill < 3 seconds. Respiratory: Airway is patent Respiratory effort is even, unlabored, Respiratory pattern is regular, symmetrical. Derm: Skin is pink, warm & dry. 22:12 Adult Sepsis Screening: The patient does not have new or worsening altered mentation. mgs Patient's respiratory rate is less than 22. Systolic blood pressure is greater than 100. Patient has a qSOFA score of 0- Negative Sepsis Screen. General: Appears in no apparent distress, Behavior is cooperative. Cardiovascular: Capillary refill < 3 seconds. Respiratory: Airway is patent Respiratory effort is even, unlabored, Respiratory pattern is regular, symmetrical. Derm: Skin is pink, warm & dry. 23:00 General: see [facility] for further documentation. mar 21 00:45 Cardiovascular: Rhythm is sinus tachycardia No ectopy. mar Vital Signs: 04/22 18:43 BP 153 / 98; Resp 20; Temp 99.6(TE); Pulse Ox 85% on R/A; Weight 74.84 kg; Height 5 ft. rs3 4 in. (162.56 cm); Pain 0/10; 18:48 Pulse 149; Pulse Ox 88% on 4 lpm NC; rs3 19:00 Pulse 138 MON; Pulse Ox 87% ; mgs 19:15 Pulse 144 MON; Pulse Ox 89% ; mgs 19:30 Pulse 146 MON; Pulse Ox 87% ; mgs 19:45 Pulse 146 MON; Pulse Ox 86% ; mgs 20:00 Pulse 140 MON; Pulse Ox 92% ; mgs 20:21 BP 7 / ???; nk1 20:30 Pulse 160 MON; Pulse Ox 87% ; mgs 21:00 Pulse 144 MON; Pulse Ox 84% ; mgs 21:17 BP 120 / 69 (auto/); mgs 21:17 Pulse 144 MON; Pulse Ox 89% ; mgs 18:43 Body Mass Index 28.32 (74.84 kg, 162.56 cm) rs3 Vitals: 18:43 Log In Time N/A - ambulance arrival. rs3 ED Course: 18:24 Patient visited by Alis Carlson, Chart Writer. lbd 18:24 Giselle Ray is Private Physician. lbd 18:24 Ivonne Jackson,DOROTHY is Primary Nurse. lbd 18:24 Patient moved to Waiting lbd 18:24 Patient moved to 14 lbd 18:31 Triage Initiated rs3 19:01 Gian Dyson DO is Attending Physician. cs11 19:02 Patient visited by Gian Dyson DO. cs11 19:23 Patient visited by Attila Crawford RN. mgs 19:49 Ammonia ([place] Tube on Ice, Not [place]a [place]) Sent. mgs 19:49 DEPAKOTE Sent. mgs 19:49 MED Profile Sent. mgs 19:49 CBC with Diff Sent. mgs 19:49 Lactic Acid (Malcolm tube on ice) Sent. mgs 19:50 -Blood Culture Sent. mgs 19:50 Inserted saline lock: 22 gauge in left hand and blood collected. The patient tolerated mgs the procedure well. 20:09 Patient visited by Attila Crawford RN. mgs 20:11 [facility] Payment Agreement was scanned into [employer] and attached to record. zo 20:14 BLOOD CULTURES Sent. cln 21:05 Sandra Richards is Hospitalizing Provider. cs11 21:16 Patient visited by Attila Crawford RN. mgs 22:13 Patient visited by Attila Crawford,DOROTHY. mgs 22:14 Patient moved to Admit Hold ml3 22:31 T-Sheet-- Draft Copy was scanned into [employer] and attached to record. klr 22:51 Patient moved to Mar 23:14 CT Chest Without Contrast Returned. EDMS 0204 15:17 ECG/EKG was scanned into [employer] and attached to record. kf3 15:17 Trend VS was scanned into [employer] and attached to record. kf3 Administered Medications: 02 20:02 Drug: Albuterol-Ipratropium 1 neb [ipratropium-albuterol 0.5 mg-3 mg(2.5 mg base)/3 mL nk1 nebulization soln (1 neb)] Route: Nebulizer; 20:08 Follow up: Response: Nebulizer completed nk1 20:12 Drug: Albuterol-Ipratropium 1 neb [ipratropium-albuterol 0.5 mg-3 mg(2.5 mg base)/3 mL nk1 nebulization soln (1 neb)] Route: Nebulizer; 20:19 Drug: Albuterol-Ipratropium 1 neb [ipratropium-albuterol 0.5 mg-3 mg(2.5 mg base)/3 mL nk1 nebulization soln (1 neb)] Route: Nebulizer; 20:21 Follow up: BP 7 / ??? nk1 20:21 Follow up: Response: Nebulizer completed nk1 21:13 Drug: azithromycin 500 mg [azithromycin 500 mg intravenous solution] Route: IVPB; mgs Infused Over: 1 hrs; Site: left hand; Attachments: 15:17 Trend VS kf3 RT: 04/22 20:02 Initial Med Neb Given as ordered Patient tolerated procedure well without adverse nk1 effect. Respiratory: Airway is patent Respiratory effort is even, labored, Respiratory pattern is tachypnea with weak coughing Breath sounds are coarse Breath sounds with rhonchi bilaterally. in right upper lobe, left upper lobe, left posterior upper lobe, right posterior upper lobe, left posterior lower lobe, right posterior middle lobe and right posterior lower lobe. 20:03 ABG's drawn from left radial artery pressure held for 5 minutes no bleeding noted nk1 pressure bandage applied specimen sent pt. tolerated well. 20:03 O2 via nasal cannula \T\ 4L/min. nk1 20:12 Subsequent Med Neb Given as ordered Patient tolerated procedure well without adverse nk1 effect. Respiratory: Breath sounds are coarse Breath sounds with rhonchi bilaterally. in right upper lobe, left upper lobe, left posterior upper lobe, right posterior upper lobe, left posterior lower lobe, right posterior middle lobe and right posterior lower lobe. 20:18 Subsequent Med Neb Given as ordered Patient tolerated procedure well without adverse nk1 effect. 20:20 Respiratory: Respiratory effort is even, labored, Respiratory pattern is tachypnea nk1 Breath sounds are coarse Breath sounds with rhonchi bilaterally. Order Results: Lab Order: Lactic Acid (Malcolm tube on ice); SPEC'M 04/22/16 19:45 Test: LACTIC ACID SEPSIS PROTOCOL; Value: 1.1; Range: 0.4-2.0; Units: MMOL/L; Status: F Lab Order: CBC with Diff; SPEC'M 04/22/16 19:45 Test: WHITE BLOOD COUNT; Value: 11.7; Range: 4.0-10.0; Abnormal: Above high normal; Units: K/mm3; Status: F Test: RED BLOOD COUNT; Value: 4.59; Range: 4.30-6.10; Units: M/mm3; Status: F Test: HEMOGLOBIN; Value: 13.8; Range: 14.0-18.0; Abnormal: Below low normal; Units: g/dl; Status: F Test: HEMATOCRIT; Value: 40.5; Range: 42.0-52.0; Abnormal: Below low normal; Units: %; Status: F Test: MEAN CORPUSCULAR VOLUME; Value: 88.2; Range: 80.0-96.0; Units: fl; Status: F Test: MEAN CORPUSCULAR HEMOGLOBIN; Value: 30.1; Range: 27.0-33.0; Units: pg; Status: F Test: MEAN CORPUSCULAR HGB CONC; Value: 34.1; Range: 32.0-36.5; Units: g/dl; Status: F Test: RED CELL DISTRIBUTION WIDTH; Value: 13.2; Range: 11.5-14.5; Units: %; Status: F Test: PLATELET COUNT, AUTOMATED; Value: 260; Range: 150-450; Units: k/mm3; Status: F Test: NEUTROPHILS %; Value: 72.2; Range: 36.0-66.0; Abnormal: Above high normal; Units: %; Status: F Test: LYMPH %; Value: 11.5; Range: 24.0-44.0; Abnormal: Below low normal; Units: %; Status: F Test: MONO %; Value: 12.4; Range: 0.0-5.0; Abnormal: Above high normal; Units: %; Status: F Test: EOS %; Value: 1.2; Range: 0.0-3.0; Units: %; Status: F Test: BASO %; Value: 0.3; Range: 0.0-1.0; Units: %; Status: F Test: LARGE UNSTAINED CELL %; Value: 2.5; Range: 0.0-4.0; Units: %; Status: F Test: NEUTROPHILS #; Value: 8.5; Range: 1.8-7.7; Abnormal: Above high normal; Units: K/mm3; Status: F Test: LYMPH #; Value: 1.6; Range: 1.5-6.5; Units: K/mm3; Status: F Test: MONO #; Value: 1.5; Range: 0.0-0.8; Abnormal: Above high normal; Units: K/mm3; Status: F Test: EOS #; Value: 0.1; Range: 0.0-0.50; Units: K/mm3; Status: F Test: BASO #; Value: 0.0; Range: 0.0-0.2; Units: K/mm3; Status: F Test: LARGE UNSTAINED CELL #; Value: 0.3; Range: 0.0-0.4; Units: K/mm3; Status: F Lab Order: MED Profile; SPEC'04/22/16 19:45 Test: GLUCOSE, FASTING; Value: 103; Range: 70-105; Units: MG/DL; Status: F Test: BLOOD UREA NITROGEN; Value: 11; Range: 7-18; Units: MG/DL; Status: F Test: CREATININE FOR GFR; Value: 0.51; Range: 0.70-1.30; Abnormal: Below low normal; Units: MG/DL; Status: F Test: GLOMERULAR FILTRATION RATE; Value: > 60.0; Range: >60; Status: F Test: SODIUM LEVEL; Value: 138; Range: 136-145; Units: MEQ/L; Status: F Test: POTASSIUM SERUM; Value: 4.2; Range: 3.5-5.1; Units: MEQ/L; Status: F Test: CHLORIDE LEVEL; Value: 102; Range: 98-107; Units: MEQ/L; Status: F Test: CARBON DIOXIDE LEVEL; Value: 27; Range: 21-32; Units: MEQ/L; Status: F Test: ANION GAP; Value: 9; Range: 8-16; Units: MEQ/L; Status: F Test: CALCIUM LEVEL; Value: 9.2; Range: 8.5-10.1; Units: MG/DL; Status: F Test Note: ; Units are mL/min/1.73 m2 Chronic Kidney Disease Staging per NKF: Stage I & II GFR >=60 Normal to Mildly Decreased Stage III GFR 30-59 Moderately Decreased Stage IV GFR 15-29 Severely Decreased Stage V GFR <15 Very Little GFR Left ESRD GFR <15 on DEEP 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 Lab Order: DEPAKOTE; SPEC04/22/16 19:45 Test: VALPROIC ACID (DEPAKOTE); Value: 96.5; Range: 50.0-100.0; Units: UG/ML; Status: F Lab Order: Ammonia ([place] Tube on Ice, Not [place]); SPEC04/22/16 19:45 Test: AMMONIA; Value: 44; Range: <32; Abnormal: Above high normal; Units: uMOL/L; Status: F Lab Order: -Arterial Blood Gas; [facility]04/22/16 19:49 Test: ABG pH (ARTERIAL); Value: 7.437; Range: 7.350-7.450; Units: UNITS; Status: F Test: ABG PARTIAL PRESSURE CO2; Value: 33.1; Range: 35.0-45.0; Abnormal: Below low normal; Units: mmHg; Status: F Test: ABG PARTIAL PRESSURE O2; Value: 35.7; Range: 75.0-100.0; Abnormal: Critical Low; Units: mmHg; Status: F Test: ABG TOTAL CO2; Value: 22.8; Range: 22.0-29.0; Units: MEQ/L; Status: F Test: ABG HCO3; Value: 21.8; Range: 22.0-26.0; Abnormal: Below low normal; Units: MEQ/L; Status: F Test: ABG BASE EXCESS; Value: -1.5; Range: -2.0-2.0; Status: F Test: ABG STANDARD HCO3; Value: 22.5; Range: 22.0-26.0; Units: MEQ/L; Status: F Test: ABG O2 SATURATION; Value: 70.3; Range: 95.0-99.0; Abnormal: Below low normal; Units: %; Status: F Test: ABG DEVICE; Value: NASAL BASIL; Status: F Lab Order: C REACTIVE PROTEIN QUANTITATIV; [facility] 04/22/16 19:45 Test: C REACTIVE PROTEIN QUANTITATIV; Value: 6.52; Range: 0.00-0.30; Abnormal: Above high normal; Units: MG/DL; Status: F Lab Order: CARDIAC MARKER PANEL; [facility]' 04/22/16 19:45 Test: CPK CREATINE PHOSPHOKINASE; Value: 198; Range: 39-308; Units: U/L; Status: F Test: CK-MB VALUE MASS; Value: 1.7; Range: 0.0-3.6; Units: NG/ML; Status: F Test: MB/CK RELATIVE INDEX; Range: < OR =4; Status: I Test: TROPONIN I; Value: < 0.02; Range: < 0.10; Units: NG/ML; Status: F Test Note: ; Troponin I Reference Interval for Siemens [place] LOCI: 99th Percentile= 0.00-0.045 ng/ml Risk Stratification: <= 0.10 ng/ml Decreased Risk for Adverse Clinical Events. 0.10-1.50 ng/ml Increased Risk for Adverse Clinical Events. Evaluation of additional criterion and/or repeat testing in 2-6 hours is suggested to rule out myocardial damage. >= 1.50 ng/ml Indicative of Myocardial Injury. Lab Order: THYROID PROFILE; SPEC'M 04/22/16 19:45 Test: T UPTAKE; Value: 31; Range: 33-40; Abnormal: Below low normal; Units: %; Status: F Test: THYROXINE (T4); Value: 11.9; Range: 4.5-12.0; Units: UG/DL; Status: F Test: FREE THYROXINE INDEX; Range: 1.4-3.8; Units: %; Status: I Test: THYROID STIMULATING HORMONE; Value: 3.860; Range: 0.358-3.740; Abnormal: Above high normal; Units: uIU/ML; Status: F Radiology Order: CT Chest Without Contrast Test: CT Chest Without Contrast REASON FOR EXAMINATION: Shortness of Breath; ; CT of the chest without contrast; Clinical statement: Shortness of breath.; Technique: Multiple axial CT images were obtained with 5 mm cuts through the chest without administra; tion of contrast.; No comparison is available.; Findings: There is no thoracic lymphadenopathy. The visualized portions of the thyroid gland is unrem; arkable. There are no pericardial or pleural effusions. There is consolidation and infiltrate in the; left upper lobe. Limited imaging of the upper abdomen does not demonstrate any acute abnormalities. T; here are no suspicious osseous lesions. Severe dextroscoliosis is noted.; Impression:; 1. Left upper lobe pneumonia.; 2. Severe scoliosis.; ; Outcome: 21:05 Decision to Hospitalize by Provider. cs11 04/23 01:28 Patient left the ED. brooke Signatures: Dispatcher [employer] EDAlis Varela, Chart Writer Unit Cathi Douglas RN RN jan Lopresti, Mary-Elizabeth, Chart Writer Unit ml3 Belle Sagastume,RT RT nk1 Zeina Armijo Kris, Reg Reg kf3 Ivonne Jackson,RN RN rs3 Gian Dyson, DO cs11 Attila Crawford RN RN mgs Thadedus, Crystal, FLUX CORE WELDER FLUX CORE WELDER cln Aracelis, Tiffany reis Chart Complete MTDD
--- NOTE | 2016-04-25 02:29 | EDDOCDS ---
Physician Documentation [facility] Name: Terry Vaughan Age: 30 yrs Sex: Male : 1985 Arrival Date: 04/22/2016 Time: 18:23 Bed 20 Private MD: Giselle Ray Disposition: 04/22/16 21:05 Hospitalization ordered by Sandra Richards for Inpatient Admission. Preliminary diagnosis are Hypoxemia, Acute and chronic respiratory failure with hypoxia. - [facility] - Status is Inpatient Admission. brooke - Condition is Stable. - Problem is chronic. - Symptoms have improved. Historical: - Allergies: Rocephin (Unknown); Augmentin (Vomit); Bactrim (Vomit); - Home Meds: 1. Depakote 375 mg am 500 mg pm Oral 2 times per day 2. Klonopin 2 mg Oral tab nightly 3. Paxil 10 mg Oral tab 1 tab twice a day 4. Zanaflex 2 mg Oral tab nightly 5. albuterol sulfate 2.5 mg /3 mL (0.083 %) Nebulizer nebu every 6 hours 6. ipratropium-albuterol 0.5 mg-3 mg(2.5 mg base)/3 mL Inhl nebu 7. Flovent 44 mcg/actuation Inhl aero 2 puffs 2 times per day 8. albuterol sulfate 90 mcg/actuation Inhl aepb every 4 hours 9. 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 No barriers to communication noted. - : The pt / caregiver states he / she is not on anticoagulants. Home medication list is obtained from the patient. - Exposure Risk Screening:: None identified. Vital Signs: 04/22 18:43 BP 153 / 98; Resp 20; Temp 99.6(TE); Pulse Ox 85% on R/A; Weight 74.84 kg / 164.99 lbs; rs3 Height 5 ft. 4 in. (162.56 cm); Pain 0/10; 18:48 Pulse 149; Pulse Ox 88% on 4 lpm NC; rs3 19:00 Pulse 138 MON; Pulse Ox 87% ; mgs 19:15 Pulse 144 MON; Pulse Ox 89% ; mgs 19:30 Pulse 146 MON; Pulse Ox 87% ; mgs 19:45 Pulse 146 MON; Pulse Ox 86% ; mgs 20:00 Pulse 140 MON; Pulse Ox 92% ; mgs 20:21 BP 7 / ???; nk1 20:30 Pulse 160 MON; Pulse Ox 87% ; mgs 21:00 Pulse 144 MON; Pulse Ox 84% ; mgs 21:17 BP 120 / 69 (auto/); mgs 21:17 Pulse 144 MON; Pulse Ox 89% ; mgs 18:43 Body Mass Index 28.32 (74.84 kg, 162.56 cm) rs3 MDM: 19:24 IV Saline Lock ordered. cs11 19:24 -Blood Culture (Adults Only), peripheral from different site, or from device/port/PICC cs11 etc. if present ordered. 19:24 Call Respiratory ordered. cs11 19:24 Albuterol-Ipratropium 1 neb Nebulizer every 20 minutes x3 ordered. cs11 19:24 Call Respiratory ordered. cs11 19:24 -Blood Culture Ordered. EDMS 19:24 Lactic Acid (Malcolm tube on ice) Ordered. EDMS 19:24 CBC with Diff Ordered. EDMS 19:24 MED Profile Ordered. EDMS 19:24 DEPAKOTE Ordered. EDMS 19:24 Ammonia ([place] Tube on Ice, Not [place]) Ordered. EDMS 19:24 -Arterial Blood Gas Ordered. EDMS 19:25 Call Respiratory complete. ml3 19:25 Call Respiratory complete. ml3 19:27 -Blood Culture (Adults Only), peripheral from different site, or from device/port/PICC ml3 etc. if present complete. 19:28 BLOOD CULTURES Ordered. EDMS 19:56 Financial registration complete. zo 20:11 [facility] Payment Agreement was scanned into [employer] and attached to record. zo 20:16 CBC with Diff Reviewed. cs11 20:16 -Arterial Blood Gas Reviewed. cs11 20:17 Oxygen (enter rate/delivery method/parameters) ordered. cs11 20:20 azithromycin 500 mg IVPB once over 1 hrs; dilute in 250mL of D5W or NS ordered. cs11 20:49 MED Profile Reviewed. cs11 20:49 Ammonia ([place] Tube on Ice, Not [place]) Reviewed. cs11 20:49 Lactic Acid (Malcolm tube on ice) Reviewed. cs11 20:49 DEPAKOTE Reviewed. cs11 20:55 BED REQUEST+ADM ordered. EDMS 21:58 RESPIRATORY PANEL Ordered. EDMS 21:58 SPUTUM CULTURE AND GRAM STAIN Ordered. EDMS 22:00 CT Chest Without Contrast Ordered. EDMS 22:02 AMMONIA Ordered. EDMS 22:02 C REACTIVE PROTEIN QUANTITATIV Ordered. EDMS 22:02 COMPLETE BLOOD COUNT Ordered. EDMS 22:02 BASIC METABOLIC PROFILE Ordered. EDMS 22:02 MAGNESIUM LEVEL Ordered. EDMS 22:03 LIVER PROFILE Ordered. EDMS 22:03 PHYSICAL THERAPY EVAL & TREAT ordered. EDMS 22:04 REGULAR DIET ordered. EDMS 22:09 Admission / Observation Status ordered. EDMS 22:15 ELECTROCARDIOGRAM ADULT ordered. EDMS 22:31 T-Sheet-- Draft Copy was scanned into [employer] and attached to record. klr 23:12 CARDIAC MARKER PANEL Ordered. EDMS 02/04 15:17 ECG/EKG was scanned into [employer] and attached to record. kf3 15:17 Trend VS was scanned into [employer] and attached to record. kf3 Administered Medications: 0203 20:02 Drug: Albuterol-Ipratropium 1 neb [ipratropium-albuterol 0.5 mg-3 mg(2.5 mg base)/3 mL nk1 nebulization soln (1 neb)] Route: Nebulizer; 20:08 Follow up: Response: Nebulizer completed nk1 20:12 Drug: Albuterol-Ipratropium 1 neb [ipratropium-albuterol 0.5 mg-3 mg(2.5 mg base)/3 mL nk1 nebulization soln (1 neb)] Route: Nebulizer; 20:19 Drug: Albuterol-Ipratropium 1 neb [ipratropium-albuterol 0.5 mg-3 mg(2.5 mg base)/3 mL nk1 nebulization soln (1 neb)] Route: Nebulizer; 20:21 Follow up: BP 7 / ??? nk1 20:21 Follow up: Response: Nebulizer completed nk1 21:13 Drug: azithromycin 500 mg [azithromycin 500 mg intravenous solution] Route: IVPB; mgs Infused Over: 1 hrs; Site: left hand; Signatures: Dispatcher [employer] EDMS Cathi Rosario RN RN brooke Carrillo, Nam, Casino Manager Unit ml3 Zeina Armijo Kris, Reg Reg kf3 Ivonne Jackson RN RN rs3 Gian Dyson, DO cs11 Attila Crawford RN RN mgs Tiffany Hsu Gee Saenz RN RN sa Kruger, Nora RT nk1 The chart was reviewed and I authenticate all verbal orders and agree with the evaluation and treatment provided.Corrections: (The following items were deleted from the chart) 22:00 21:58 C REACTIVE PROTEIN QUANTITATIV ordered. EDMS EDMS 22:09 21:04 CT ANGIO CHEST+CT ordered. EDMS EDMS 23:26 23:12 CARDIAC MARKER PANEL ordered. EDMS EDMS 23:27 23:12 THYROID PROFILE ordered. EDMS EDMS Attachments: 20:11 [facility] Payment Agreement zo 22:31 T-Sheet-- Draft Copy r 04/23 15:17 ECG/EKG kf3 Chart Complete MTDD
--- NOTE | 2016-04-25 02:29 | EDDOCDS ---
Physician Documentation [facility] Name: Terry Vaughan Age: 30 yrs Sex: Male : 1985 Arrival Date: 04/22/2016 Time: 18:23 Bed 20 Private MD: Giselle Ray Disposition: 04/22/16 21:05 Hospitalization ordered by Sandra Richards for Inpatient Admission. Preliminary diagnosis are Hypoxemia, Acute and chronic respiratory failure with hypoxia. - [facility]. - Status is Inpatient Admission. brooke - Condition is Stable. - Problem is chronic. - Symptoms have improved. Historical: - Allergies: Rocephin (Unknown); Augmentin (Vomit); Bactrim (Vomit); - Home Meds: 1. Depakote 375 mg am 500 mg pm Oral 2 times per day 2. Klonopin 2 mg Oral tab nightly 3. Paxil 10 mg Oral tab 1 tab twice a day 4. Zanaflex 2 mg Oral tab nightly 5. albuterol sulfate 2.5 mg /3 mL (0.083 %) Nebulizer nebu every 6 hours 6. ipratropium-albuterol 0.5 mg-3 mg(2.5 mg base)/3 mL Inhl nebu 7. Flovent 44 mcg/actuation Inhl aero 2 puffs 2 times per day 8. albuterol sulfate 90 mcg/actuation Inhl aepb every 4 hours 9. 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 No barriers to communication noted. - : The pt / caregiver states he / she is not on anticoagulants. Home medication list is obtained from the patient. - Exposure Risk Screening:: None identified. Vital Signs: 04/22 18:43 BP 153 / 98; Resp 20; Temp 99.6(TE); Pulse Ox 85% on R/A; Weight 74.84 kg / 164.99 lbs; rs3 Height 5 ft. 4 in. (162.56 cm); Pain 0/10; 18:48 Pulse 149; Pulse Ox 88% on 4 lpm NC; rs3 19:00 Pulse 138 MON; Pulse Ox 87% ; mgs 19:15 Pulse 144 MON; Pulse Ox 89% ; mgs 19:30 Pulse 146 MON; Pulse Ox 87% ; mgs 19:45 Pulse 146 MON; Pulse Ox 86% ; mgs 20:00 Pulse 140 MON; Pulse Ox 92% ; mgs 20:21 BP 7 / ???; nk1 20:30 Pulse 160 MON; Pulse Ox 87% ; mgs 21:00 Pulse 144 MON; Pulse Ox 84% ; mgs 21:17 BP 120 / 69 (auto/); mgs 21:17 Pulse 144 MON; Pulse Ox 89% ; mgs 18:43 Body Mass Index 28.32 (74.84 kg, 162.56 cm) rs3 MDM: 19:24 IV Saline Lock ordered. cs11 19:24 -Blood Culture (Adults Only), peripheral from different site, or from device/port/PICC cs11 etc. if present ordered. 19:24 Call Respiratory ordered. cs11 19:24 Albuterol-Ipratropium 1 neb Nebulizer every 20 minutes x3 ordered. cs11 19:24 Call Respiratory ordered. cs11 19:24 -Blood Culture Ordered. EDMS 19:24 Lactic Acid (Malcolm tube on ice) Ordered. EDMS 19:24 CBC with Diff Ordered. EDMS 19:24 MED Profile Ordered. EDMS 19:24 DEPAKOTE Ordered. EDMS 19:24 Ammonia (Little Green Tube on Ice, Not [place]a Green) Ordered. EDMS 19:24 -Arterial Blood Gas Ordered. EDMS 19:25 Call Respiratory complete. ml3 19:25 Call Respiratory complete. ml3 19:27 -Blood Culture (Adults Only), peripheral from different site, or from device/port/PICC ml3 etc. if present complete. 19:28 BLOOD CULTURES Ordered. EDMS 19:56 Financial registration complete. zo 20:11 [facility] Payment Agreement was scanned into [employer] and attached to record. zo 20:16 CBC with Diff Reviewed. cs11 20:16 -Arterial Blood Gas Reviewed. cs11 20:17 Oxygen (enter rate/delivery method/parameters) ordered. cs11 20:20 azithromycin 500 mg IVPB once over 1 hrs; dilute in 250mL of D5W or NS ordered. cs11 20:49 MED Profile Reviewed. cs11 20:49 Ammonia (Little Green Tube on Ice, Not Pea Green) Reviewed. cs11 20:49 Lactic Acid (Malcolm tube on ice) Reviewed. cs11 20:49 DEPAKOTE Reviewed. cs11 20:55 BED REQUEST+ADM ordered. EDMS 21:58 RESPIRATORY PANEL Ordered. EDMS 21:58 SPUTUM CULTURE AND GRAM STAIN Ordered. EDMS 22:00 CT Chest Without Contrast Ordered. EDMS 22:02 AMMONIA Ordered. EDMS 22:02 C REACTIVE PROTEIN QUANTITATIV Ordered. EDMS 22:02 COMPLETE BLOOD COUNT Ordered. EDMS 22:02 BASIC METABOLIC PROFILE Ordered. EDMS 22:02 MAGNESIUM LEVEL Ordered. EDMS 22:03 LIVER PROFILE Ordered. EDMS 22:03 PHYSICAL THERAPY EVAL & TREAT ordered. EDMS 22:04 REGULAR DIET ordered. EDMS 22:09 Admission / Observation Status ordered. EDMS 22:15 ELECTROCARDIOGRAM ADULT ordered. EDMS 22:31 T-Sheet-- Draft Copy was scanned into [employer] and attached to record. klr 23:12 CARDIAC MARKER PANEL Ordered. EDMS 02/04 15:17 ECG/EKG was scanned into [employer] and attached to record. kf3 15:17 Trend VS was scanned into [employer] and attached to record. kf3 Administered Medications: 0203 20:02 Drug: Albuterol-Ipratropium 1 neb [ipratropium-albuterol 0.5 mg-3 mg(2.5 mg base)/3 mL nk1 nebulization soln (1 neb)] Route: Nebulizer; 20:08 Follow up: Response: Nebulizer completed nk1 20:12 Drug: Albuterol-Ipratropium 1 neb [ipratropium-albuterol 0.5 mg-3 mg(2.5 mg base)/3 mL nk1 nebulization soln (1 neb)] Route: Nebulizer; 20:19 Drug: Albuterol-Ipratropium 1 neb [ipratropium-albuterol 0.5 mg-3 mg(2.5 mg base)/3 mL nk1 nebulization soln (1 neb)] Route: Nebulizer; 20:21 Follow up: BP 7 / ??? nk1 20:21 Follow up: Response: Nebulizer completed nk1 21:13 Drug: azithromycin 500 mg [azithromycin 500 mg intravenous solution] Route: IVPB; mgs Infused Over: 1 hrs; Site: left hand; Signatures: Dispatcher [employer] EDMS Cathi Rosario RN RN brooke Carrillo, Nam, Sports Equipment Racker Unit ml3 Zeina Armijo Kris, Reg Reg kf3 Ivonne Jackson RN RN rs3 Gian Dyson, DO cs11 Attila Crawford RN RN mgs Tiffany Hsu Gee Saenz RN RN sa Kruger, Nora RT nk1 The chart was reviewed and I authenticate all verbal orders and agree with the evaluation and treatment provided.Corrections: (The following items were deleted from the chart) 22:00 21:58 C REACTIVE PROTEIN QUANTITATIV ordered. EDMS EDMS 22:09 21:04 CT ANGIO CHEST+CT ordered. EDMS EDMS 23:26 23:12 CARDIAC MARKER PANEL ordered. EDMS EDMS 23:27 23:12 THYROID PROFILE ordered. EDMS EDMS Attachments: 20:11 [facility] zo 22:31 T-Sheet-- Draft Copy r 04/23 15:17 ECG/EKG kf3 Chart Complete MTDD
[2016-04-25 05:22] LABS: MEAN CORPUSCULAR HGB CONC 33.7 g/dl (32.0-36.5); MEAN CORPUSCULAR VOLUME 89.1 fl (80.0-96.0); RED CELL DISTRIBUTION WIDTH 13.4 % (11.5-14.5); WHITE BLOOD COUNT 7.9 K/mm3 (4.0-10.0)
[2016-04-25 05:32] LABS: ANION GAP 11 MEQ/L (8-16); BLOOD UREA NITROGEN 18 MG/DL (7-18); CARBON DIOXIDE LEVEL 27 MEQ/L (21-32); CHLORIDE LEVEL 106 MEQ/L (98-107); GLOMERULAR FILTRATION RATE > 60.0 (>60); GLUCOSE, FASTING 84 MG/DL (70-105); MAGNESIUM LEVEL 2.1 MG/DL (1.8-2.4); POTASSIUM SERUM 3.8 MEQ/L (3.5-5.1); SODIUM LEVEL 144 MEQ/L (136-145)
[2016-04-25] MEDS: SLF 3 ML SYR IV SCH ×3 (06:01→21:24)
[2016-04-25] MEDS: HEPARIN SOD (PORCINE) 5000 UNITS/ML VIAL SC SCH ×3 (06:01→21:21)
--- NOTE | 2016-04-25 08:28 | IPNPDOC ---
Assessment/Plan Date Seen The patient was seen on 04/25/16. Problems Problems: (1) Left upper lobe pneumonia Status: Acute Problem Specific Plan: Monitor Clinically Problem Text: IV Levaquin D4. 04/23/16 PCR resp panel-coronavirus 04/25/16 still requiring 10L HF O2 to maintain SaO2 92% (on NO O2 at home) Getting chest PT. (2) Seizure disorder Status: Chronic Problem Specific Plan: Monitor Clinically Problem Text: On Depakote. No recent seizures. Monitor closely as pt is on Levaquin. (3) Cerebral palsy Status: Chronic Problem Specific Plan: Monitor Clinically Problem Text: Stable. (4) Restrictive lung disease Status: Chronic Problem Specific Plan: Monitor Clinically Plan / VTE VTE Prophylaxis Ordered?: Yes Subjective Review of Systems CC/HPI The patient is a 30-year-old male admitted with a reason for visit of Hypoxia; Pneumonia. Events since last encounter Pt nonverbal. Nursing reports O2 was increased to 15 liters during night. Pt currently getting chest PT. General: Reports: ROS Unobtainable Objective Physical Examination General Exam: Positive: Alert, No Acute Distress Neck Exam: Positive: Supple, Negative: JVD Chest Exam: Positive: Rhonchi, Wheezing Heart Exam: Positive: Rate Normal, Regular Rhythm Abdomen Exam: Positive: Normal bowel sounds, Soft, Negative: Tenderness Extremity Exam: Negative: Edema Vital Signs/I&O Vital Signs Date Time Temp Pulse Resp B/P Pulse Ox O2 Delivery O2 Flow Rate FiO2 04/25/16 05:45 97 High Flow Cannula 8.0 04/25/16 03:41 97.1 111 18 117/62 04/23/16 08:00 40 I&O- Last 24 Hours up to 6 AM 04/25/16 06:00 Intake Total 250 ml Output Total 0 ml Balance 250 ml Laboratory Data Labs 24H Laboratory Tests 2 04/25/16 04:54: Anion Gap 11, Blood Urea Nitrogen 18#, Creatinine 0.60L, Sodium Level 144, Potassium Level 3.8, Chloride Level 106, Carbon Dioxide Level 27, Calcium Level 9.0, Glomerular Filtration Rate > 60.0, Magnesium Level 2.1 CBC/BMP Laboratory Tests 04/25/16 04:54 Calcium Level 9.0, Red Blood Count 4.16 L, Mean Corpuscular Volume 89.1, Mean Corpuscular Hemoglobin 30.0, Mean Corpuscular Hemoglobin Concent 33.7, Red Cell Distribution Width 13.4 Microbiology Microbiology 04/22/16 Blood Culture - Preliminary, Resulted No Growth after 48 hours. All Specime... 04/22/16 Blood Culture - Preliminary, Resulted No Growth after 48 hours. All Specime... 04/23/16 Respiratory Virus Panel (PCR) ([facility]) - Final, Complete Coronavirus Oc43 Fidel Holm Apr 25, 2016 08:28 Billy Hughes M.D. Apr 25, 2016 13:39
[2016-04-25] MEDS: guaiFENesin 200 MG TAB PO SCH ×3 (08:46→21:21)
[2016-04-25] MEDS: PARoxetine 10MG TABLET PO SCH ×2 (08:47→21:21)
[2016-04-25] MEDS: LACTOBACILLUS ACIDOPHILUS CAP (BACID) PO SCH ×3 (08:47→18:34)
[2016-04-25] MEDS: DIVALPROEX SPRINKLE 125 MG CAP PO SCH ×2 (08:47→21:22)
[2016-04-25] MEDS: MIRALAX *UNIT DOSE* 17GM PACKET PO SCH (08:48)
[2016-04-25] MEDS: OMEPRAZOLE 20 MG CAP PO SCH (08:48)
[2016-04-25] MEDS: SENOKOT S TAB PO SCH ×2 (08:48→21:22)
[2016-04-25] MEDS: FLUTICASONE HFA 44 MCG 10.6GM INHALER (FLOVENT) INH SCH ×2 (09:00→20:16)
[2016-04-25] MEDS: tiZANidine 4 MG TAB PO SCH (21:22)
[2016-04-25] MEDS: clonazePAM 1 MG TAB PO SCH (21:22)
[2016-04-25] MEDS: LevoFLOXacin IV 750 MG in APPROPRIATE DILUENT 1 EA IV SCH (23:24)
[2016-04-26] VITALS (16 sets, daily range): BP systolic 110–127; BP diastolic 66–76; O2SAT 79–96
[2016-04-26] MEDS: IPRATROPIUM 0.5MG/ALBUTEROL 2.5MG INH SOL UD 3ML (DUONEB)(J7620) NEB SCH ×4 (02:03→19:32)
[2016-04-26] MEDS: HEPARIN SOD (PORCINE) 5000 UNITS/ML VIAL SC SCH ×3 (05:06→21:13)
[2016-04-26] MEDS: SLF 3 ML SYR IV SCH ×3 (05:06→21:13)
[2016-04-26 05:53] LABS: ANION GAP 8 MEQ/L (8-16); BLOOD UREA NITROGEN 17 MG/DL (7-18); CALCIUM LEVEL 9.2 MG/DL (8.5-10.1); CARBON DIOXIDE LEVEL 29 MEQ/L (21-32); CHLORIDE LEVEL 104 MEQ/L (98-107); CREATININE FOR GFR 0.56 MG/DL (0.70-1.30); GLOMERULAR FILTRATION RATE > 60.0 (>60); GLUCOSE, FASTING 108 MG/DL (70-105); MAGNESIUM LEVEL 2.1 MG/DL (1.8-2.4); POTASSIUM SERUM 3.9 MEQ/L (3.5-5.1); SODIUM LEVEL 141 MEQ/L (136-145)
[2016-04-26 06:12] LABS: MEAN CORPUSCULAR HEMOGLOBIN 30.3 pg (27.0-33.0); MEAN CORPUSCULAR HGB CONC 33.6 g/dl (32.0-36.5); MEAN CORPUSCULAR VOLUME 90.4 fl (80.0-96.0); WHITE BLOOD COUNT 10.6 K/mm3 (4.0-10.0)
[2016-04-26] MEDS: FLUTICASONE HFA 44 MCG 10.6GM INHALER (FLOVENT) INH SCH ×2 (07:21→19:32)
[2016-04-26] MEDS: PARoxetine 10MG TABLET PO SCH (08:44)
[2016-04-26] MEDS: guaiFENesin 200 MG TAB PO SCH (08:44)
[2016-04-26] MEDS: LACTOBACILLUS ACIDOPHILUS CAP (BACID) PO SCH ×2 (08:44→12:30)
[2016-04-26] MEDS: DIVALPROEX SPRINKLE 125 MG CAP PO SCH (08:44)
[2016-04-26] MEDS: SENOKOT S TAB PO SCH (08:44)
[2016-04-26] MEDS: OMEPRAZOLE 20 MG CAP PO SCH (08:44)
[2016-04-26] MEDS: MIRALAX *UNIT DOSE* 17GM PACKET PO SCH (08:44)
--- NOTE | 2016-04-26 09:05 | IPNPDOC ---
Assessment/Plan Date Seen The patient was seen on 04/26/16. Problems Problems: (1) Left upper lobe pneumonia Status: Acute Problem Specific Plan: Monitor Clinically Problem Text: 04/26 - IV Levaquin D5. Requiring 15 L HF. 04/25/16 still requiring 10L HF O2 to maintain SaO2 92% (on NO O2 at home) Getting chest PT. IV Levaquin D4. 04/23/16 PCR resp panel-coronavirus (2) Seizure disorder Status: Chronic Problem Specific Plan: Monitor Clinically Problem Text: On Depakote. No recent seizures. Monitor closely as pt is on Levaquin. (3) Cerebral palsy Status: Chronic Problem Specific Plan: Monitor Clinically Problem Text: Stable. (4) Restrictive lung disease Status: Chronic Problem Specific Plan: Monitor Clinically Plan / VTE VTE Prophylaxis Ordered?: Yes Subjective Review of Systems CC/HPI The patient is a 30-year-old male admitted with a reason for visit of Hypoxia; Pneumonia. Events since last encounter Pt nonverbal. General: Reports: ROS Unobtainable Objective Physical Examination General Exam: Positive: Alert, No Acute Distress Neck Exam: Positive: Supple, Negative: JVD Chest Exam: Positive: Rhonchi, Wheezing Heart Exam: Positive: Rate Normal, Regular Rhythm Abdomen Exam: Positive: Normal bowel sounds, Soft, Negative: Tenderness Extremity Exam: Negative: Edema Vital Signs/I&O Vital Signs Date Time Temp Pulse Resp B/P Pulse Ox O2 Delivery O2 Flow Rate FiO2 04/26/16 07:30 98.6 85 20 110/66 92 High Flow Cannula 04/26/16 06:00 15.0 04/23/16 08:00 40 I&O- Last 24 Hours up to 6 AM 04/26/16 06:00 Intake Total 870 ml Output Total 0 ml Balance 870 ml Laboratory Data Labs 24H Laboratory Tests 2 04/26/16 05:14: Anion Gap 8, Blood Urea Nitrogen 17, Creatinine 0.56L, Sodium Level 141, Potassium Level 3.9, Chloride Level 104, Carbon Dioxide Level 29, Calcium Level 9.2, Glomerular Filtration Rate > 60.0, Magnesium Level 2.1 CBC/BMP Laboratory Tests 04/26/16 05:14 Calcium Level 9.2, Red Blood Count 4.46, Mean Corpuscular Volume 90.4, Mean Corpuscular Hemoglobin 30.3, Mean Corpuscular Hemoglobin Concent 33.6, Red Cell Distribution Width 13.0 Microbiology Microbiology 04/22/16 Blood Culture - Preliminary, Resulted No Growth after 72 hours. All specime... 04/22/16 Blood Culture - Preliminary, Resulted No Growth after 72 hours. All specime... 04/23/16 Respiratory Virus Panel (PCR) ([facility]) - Final, Complete Coronavirus Oc43 Fidel Holm Apr 26, 2016 09:05
[2016-04-26] MEDS: IPRATROPIUM 0.5MG/ALBUTEROL 2.5MG INH SOL UD 3ML (DUONEB)(J7620) NEB PRN (10:09)
[2016-04-26 10:54] LABS: ABG STANDARD HCO3 26.9 MEQ/L (22.0-26.0); ABG TOTAL CO2 29.3 MEQ/L (22.0-29.0); ABG pH (ARTERIAL) 7.421 UNITS (7.350-7.450)
[2016-04-26 10:58] LABS: ABG PARTIAL PRESSURE O2 49.8 mmHg (75.0-100.0)
[2016-04-26] MEDS: VALPROATE SOD INJ 500 MG in D5W 50 ML IV SCH (21:13)
[2016-04-26] MEDS: LevoFLOXacin IV 750 MG in APPROPRIATE DILUENT 1 EA IV SCH (23:45)
[2016-04-27] VITALS (13 sets, daily range): BP systolic 103–133; BP diastolic 59–79; O2SAT 92–94
[2016-04-27] MEDS: IPRATROPIUM 0.5MG/ALBUTEROL 2.5MG INH SOL UD 3ML (DUONEB)(J7620) NEB SCH ×4 (01:15→19:47)
[2016-04-27] MEDS: IPRATROPIUM 0.5MG/ALBUTEROL 2.5MG INH SOL UD 3ML (DUONEB)(J7620) NEB PRN (03:05)
[2016-04-27 04:49] LABS: MEAN CORPUSCULAR HEMOGLOBIN 29.9 pg (27.0-33.0); MEAN CORPUSCULAR HGB CONC 33.2 g/dl (32.0-36.5); RED CELL DISTRIBUTION WIDTH 12.9 % (11.5-14.5); WHITE BLOOD COUNT 7.1 K/mm3 (4.0-10.0)
[2016-04-27 05:04] LABS: ANION GAP 6 MEQ/L (8-16); BLOOD UREA NITROGEN 17 MG/DL (7-18); CALCIUM LEVEL 9.1 MG/DL (8.5-10.1); CARBON DIOXIDE LEVEL 33 MEQ/L (21-32); CHLORIDE LEVEL 104 MEQ/L (98-107); CREATININE FOR GFR 0.59 MG/DL (0.70-1.30); GLOMERULAR FILTRATION RATE > 60.0 (>60); GLUCOSE, FASTING 99 MG/DL (70-105); MAGNESIUM LEVEL 2.2 MG/DL (1.8-2.4); SODIUM LEVEL 143 MEQ/L (136-145)
[2016-04-27] MEDS: SLF 3 ML SYR IV SCH ×3 (05:05→21:02)
[2016-04-27] MEDS: HEPARIN SOD (PORCINE) 5000 UNITS/ML VIAL SC SCH ×3 (05:05→21:02)
--- NOTE | 2016-04-27 07:58 | CR ---
DATE OF ADMISSION: 04/22/2016 DATE OF PULMONARY CONSULTATION: 04/26/2016 PRIMARY PROVIDER: Dr. Edwards [employer] SUPERVISOR: Dr. Palma Critical care time was one hour. We were asked to urgently see this patient based on increasing oxygen requirements. Dr. olivas attended his bedside and transferred him to the ICU based on the severity of his hypoxia. Mr. Paulson is a 30-year-old male with history of cerebral palsy, seizure disorder, restrictive lung disease due to scoliosis and kyphosis, anxiety, depression, and recurrent pneumonia who presents once again with shortness of breath and trouble clearing his mucus. He usually wears a chest PT vest at home, and mother states that she was trying to get him to clear his secretions, but then he progressively got worse. Due to the patient being unable to clear his secretions and imaging showing findings of pneumonia, the patient required more oxygen; therefore, he was transferred to the intensive care unit (ICU) for more critical care due to acute hypoxic respiratory failure. PAST MEDICAL AND SURGICAL HISTORY 1. Cerebral palsy. 2. Restrictive lung disease due to scoliosis and kyphosis. 3. History of seizure disorder. 4. Anxiety and depression. 5. Multiple episodes of pneumonia. 6. Right hip arthroplasty. 7. Bilateral ear surgery. 8. Bilateral knee arthroplasty. ALLERGIES: 1. AMOXICILLIN 2. ASPARTAME. 3. CEPHALOSPORIN. 4. CLAVULANIC ACID. 5. Contrast dye. 6. BACTRIM. 7. Seafood. 8. Peanuts. 9. Mushrooms. 10. ASPARTAME. LABORATORY DATA: WBC 10.6, hemoglobin 13.5, hematocrit 40.4, platelet count 233. Sodium 141, potassium 3.9, chloride 104, carbon dioxide 29, anion gap 8, BUN 17, creatinine 0.56, GFR greater than 60, fasting glucose 108, calcium 9.2, magnesium 2.1. Toxicology revealed normal valproic acid levels. ABG this morning showed a pH of 7.421, pCO2 of 44, pO2 of 49.8, HCO3 of 28, total CO2 of 29.3, oxygen saturation 85.4, base excess 3.0. Microbiology: respiratory virus panel was positive for Coronavirus . Blood cultures showed no growth after 72 hours. Gram stain and sputum culture are pending. Methicillin-resistant Staphylococcus aureus (MRSA) screen is pending. IMAGING: The patient had a chest CT on April 22, which revealed left upper lobe pneumonia, severe dextroscoliosis. PHYSICAL EXAMINATION: VITAL SIGNS: Temperature 99.9, pulse 133, respiratory rate 32, blood pressure 120/73, pulse oximetry 86% on 25 liters of comfort flow. GENERAL: The patient is alert. He is nonverbal. He does not appear to be in acute respiratory distress. HEENT: Normocephalic, atraumatic. Extraocular muscles are intact. Mucosa is somewhat dry. NECK: Supple. No cervical lymphadenopathy. No thyromegaly. HEART: Tachycardiac, regular rhythm. No murmurs, gallops, or rubs appreciated. CHEST: Symmetric. Not currently using any accessory muscles. Breathing appears symmetric and rested. LUNGS: Positive for bilateral rhonchi, left side greater than the right side. No wheezing appreciated. His air entry is fair. Expiratory phase is not prolonged. ABDOMEN: Soft, nondistended. Bowel sounds are present. EXTREMITIES: He has deformity of his foot. No significant cyanosis or edema appreciated. Positive pedal pulses bilaterally. SKIN: Warm and dry. No rashes noted. NEUROLOGIC: The patient has history of cerebral palsy and is nonverbal. ASSESSMENT AND PLAN: 1. Acute hypoxic respiratory failure secondary to pneumonia and mucous plugging. The patient has been transferred to the ICU for closer monitoring. He is currently on comfort flow at 25 liters. His breathing appears to be stable at this point in time. Sputum culture is pending. He will require nasotracheal suctioning as needed to help with mucus clearance. Physical therapy will also provide chest physiotherapy (PT) to help with clearance. He is currently is on intravenous (IV) Levaquin for his left-sided pneumonia. Continue with high-flow oxygen. He will be monitored closely for decompensation. He is at high risk for intubation. We will make him nothing by mouth in case he does need to be intubated. Necessary oral medications will be changed to IV. Continue with breathing treatments. 2. Leukocytosis, likely secondary to infectious process with low-grade fever. The patient is on antibiotics. Blood cultures show no growth thus far. Sputum is pending. Continue with current therapy. 3. Severe scoliosis causing restrictive lung disease, which affects his breathing and ability to clear secretions. 4. History of cerebral palsy. Patient is nonverbal at baseline. 5. Gastrointestinal (GI) prophylaxis. The patient is on IV Protonix. 6. Deep vein thrombosis (DVT) prophylaxis. The patient is on subcutaneous heparin. CRITICAL CARE TIME SPENT: 1 hour, not including any procedures. My preceptor for this patient encounter was Dr. Olivas. The preceptor was physically present in the room during the encounter and was fully available as needed. All aspects of the patient interview, examination, medical decision making process, and medical care plan development were reviewed and approved by the preceptor. The preceptor is aware and concurs with the plan as stated in the body of this note and will attest to such by his/her co-signature. I, Pastor Olivas, conducted an independent history and physical. I agree with the assessment and plan as outlined above for this critical patient who is at high risk for requiring intubation. We will montior closely in the ICU for further respiratory failure. Mother is at bedside instructing us to do everything possible to save his life. NED
[2016-04-27] MEDS: D5W IV SCH (08:22)
[2016-04-27] MEDS: PANTOPRAZOLE 40MG INJ (PROTONIX) (C9113) IV SCH (08:22)
[2016-04-27] MEDS: VALPROATE SOD IV SCH (08:22)
--- NOTE | 2016-04-27 08:29 | IPNPDOC ---
Subjective Subjective Date Seen The patient was seen on 04/27/16. CC/HPI The patient is a 30-year-old male admitted with a reason for visit of Hypoxia; Pneumonia. Events since last encounter Pt nonverbal. Pt awake. General: Reports: ROS Unobtainable Objective Physical Examination General Exam: Positive: Alert, No Acute Distress Neck Exam: Positive: Supple, Negative: JVD Chest Exam: Positive: Diminished, Rhonchi, Wheezing Heart Exam: Positive: Rate Normal, Regular Rhythm Abdomen Exam: Positive: Normal bowel sounds, Soft, Negative: Tenderness Extremity Exam: Negative: Edema Assessment /Plan Problems Problems: (1) Left upper lobe pneumonia Status: Acute Problem Specific Plan: Monitor Clinically Problem Text: 04/27- Pulmonary consulted yesterday for acute hypoxic respiratory failure secondary to pneumonia and mucous plugging. The patient was transferred to the ICU for closer monitoring. He is currently on comfort flow at 35 liters. He is getting nasotracheal suctioning as needed to help with mucus clearance. He is getting chest physiotherapy (PT) to help with clearance. He is on IV Levaquin D6. 04/26 - IV Levaquin D5. Requiring 15 L HF. 04/25/16 still requiring 10L HF O2 to maintain SaO2 92% (on NO O2 at home) Getting chest PT. IV Levaquin D4. 04/23/16 PCR resp panel-coronavirus Levaquin has completed 5 days, will d/c. (2) Seizure disorder Status: Chronic Problem Specific Plan: Monitor Clinically Problem Text: On Depakote. No recent seizures. Monitor closely as pt is on Levaquin. (3) Cerebral palsy Status: Chronic Problem Specific Plan: Monitor Clinically Problem Text: Stable. (4) Restrictive lung disease Status: Chronic Problem Specific Plan: Monitor Clinically Problem Text: Pulmonary consulted. Plan/VTE VTE Prophylaxis Ordered?: Yes VS, I&O, 24H, Fishbone Vital Signs/I&O VS/I&O Vital Sign - Last 24 Hours 04/26/16 04/26/16 04/26/16 04/26/16 09:00 10:00 11:00 11:30 Temp 99.9 Pulse 133 Resp 32 B/P 120/73 Pulse Ox 79 83 85 86 O2 Delivery Nasal Cannula Nasal Cannula Nasal Cannula Comfort Flow O2 Flow Rate 15.0 25.0 FiO2 25 25 04/26/16 04/26/16 04/26/1604/26/17 12:00 12:00 13:00 14:00 Pulse 116 117 101 Pulse Ox 94 96 95 O2 Delivery Comfort Flow Comfort Flow Comfort Flow O2 Flow Rate 25.0 25.0 25.0 25.0 04/26/16 04/26/16 04/26/16 04/26/16 15:00 16:00 16:00 19:30 Temp 99.5 Pulse 87 88 Resp 26 B/P 127/76 Pulse Ox 96 94 95 O2 Delivery Comfort Flow Comfort Flow Nasal Cannula O2 Flow Rate 25.0 25.0 25.0 25.0 04/26/16 04/26/16 04/27/16 04/27/16 20:00 20:00 00:01 01:06 Temp 99.3 97.6 Pulse 91 90 Resp 22 24 B/P 119/73 111/74 Pulse Ox 95 93 94 O2 Delivery Comfort Flow Comfort Flow Nasal Cannula O2 Flow Rate 25.0 25.0 25.0 25.0 04/27/16 04/27/16 04/27/16 04/27/16 02:01 02:57 04:00 04:02 Temp 99.3 Pulse 99 108 Resp 22 B/P 132/61 130/70 Pulse Ox 93 92 92 O2 Delivery Comfort Flow Nasal Cannula Comfort Flow O2 Flow Rate 25.0 35.0 35.0 35.0 I&O- Last 24 Hours up to 6 AM 04/27/16 05:59 Intake Total 205 ml Balance 205 ml Laboratory Data 24H LABS Laboratory Tests 2 04/26/16 10:45: Arterial Blood pH 7.421, Arterial Blood Partial Pressure CO2 44.0, Arterial Blood Partial Pressure O2 49.8*L, Arterial Blood Total CO2 29.3H, Arterial Blood HCO3 28.0H, Arterial Blood Base Excess 3.0H, Arterial Blood Oxygen Saturation 85.4L, Blood Gas Bicarbonate Standard 26.9H 04/27/16 04:37: Anion Gap 6L, Blood Urea Nitrogen 17, Creatinine 0.59L, Sodium Level 143, Potassium Level 4.0, Chloride Level 104, Carbon Dioxide Level 33H, Calcium Level 9.1, Glomerular Filtration Rate > 60.0, Magnesium Level 2.2 CBC/BMP Laboratory Tests 04/27/16 04:37 Calcium Level 9.1, Red Blood Count 4.34, Mean Corpuscular Volume 90.0, Mean Corpuscular Hemoglobin 29.9, Mean Corpuscular Hemoglobin Concent 33.2, Red Cell Distribution Width 12.9 Microbiology Microbiology 04/22/16 Blood Culture - Preliminary, Resulted No Growth after 72 hours. All specime... 04/22/16 Blood Culture - Preliminary, Resulted No Growth after 72 hours. All specime... 04/26/16 Gram Stain - Final, Resulted 04/26/16 Sputum Culture, Resulted Pending 04/26/16 MRSA Screen, Received Pending 04/23/16 Respiratory Virus Panel (PCR) ([facility]) - Final, Complete Coronavirus Oc43 Attending Note Attending Note patient seen and examined, agree with findings and plan as amended. Fidel Holm Apr 27, 2016 08:29 Jermaine Serra MD Apr 27, 2016 13:30
[2016-04-27] MEDS: FLUTICASONE HFA 44 MCG 10.6GM INHALER (FLOVENT) INH SCH ×2 (08:37→19:47)
[2016-04-27] MEDS: SENOKOT S TAB PO SCH ×2 (09:00→20:06)
[2016-04-27] MEDS: PARoxetine 10MG TABLET PO SCH ×2 (09:00→20:06)
[2016-04-27] MEDS: MIRALAX *UNIT DOSE* 17GM PACKET PO SCH (09:00)
[2016-04-27] MEDS: LACTOBACILLUS ACIDOPHILUS CAP (BACID) PO SCH ×2 (12:30→18:00)
--- NOTE | 2016-04-27 16:20 | REP ---
PORTABLE CHEST: ONE VIEW. HISTORY: Hypoxia. COMPARISON: 04/22/2016 There is poor inspiratory effort. There has been a decrease in the left upper and lower lobe infiltrates compared to the previous study. The right lung is clear. The heart is normal in size. The pulmonary vasculature is normal in appearance. IMPRESSION: There has been a in the left upper and lower lobe infiltrates compared to the previous study. Signed by Sebastian Argueta MD 04/27/2016 04:24 P
[2016-04-27 19:37] LABS: ABG BASE EXCESS 4.5 (-2.0-2.0); ABG HCO3 30.5 MEQ/L (22.0-26.0); ABG PARTIAL PRESSURE CO2 50.8 mmHg (35.0-45.0); ABG PARTIAL PRESSURE O2 87.1 mmHg (75.0-100.0); ABG STANDARD HCO3 28.5 MEQ/L (22.0-26.0); ABG pH (ARTERIAL) 7.396 UNITS (7.350-7.450)
[2016-04-27] MEDS: clonazePAM 1 MG TAB PO SCH (20:06)
[2016-04-27] MEDS: tiZANidine 4 MG TAB PO SCH (20:06)
[2016-04-27] MEDS: VALPROATE SOD INJ 500 MG in D5W 50 ML IV SCH (21:02)
[2016-04-28] VITALS (13 sets, daily range): BP systolic 109–132; BP diastolic 64–80; O2SAT 87
[2016-04-28] MEDS: IPRATROPIUM 0.5MG/ALBUTEROL 2.5MG INH SOL UD 3ML (DUONEB)(J7620) NEB SCH ×4 (01:35→19:36)
[2016-04-28 04:41] LABS: RED CELL DISTRIBUTION WIDTH 13.1 % (11.5-14.5); WHITE BLOOD COUNT 7.2 K/mm3 (4.0-10.0)
[2016-04-28 04:53] LABS: ANION GAP 8 MEQ/L (8-16); BLOOD UREA NITROGEN 22 MG/DL (7-18); CALCIUM LEVEL 9.3 MG/DL (8.5-10.1); CARBON DIOXIDE LEVEL 31 MEQ/L (21-32); CHLORIDE LEVEL 104 MEQ/L (98-107); CREATININE FOR GFR 0.59 MG/DL (0.70-1.30); GLOMERULAR FILTRATION RATE > 60.0 (>60); GLUCOSE, FASTING 91 MG/DL (70-105); MAGNESIUM LEVEL 2.4 MG/DL (1.8-2.4); POTASSIUM SERUM 3.9 MEQ/L (3.5-5.1); SODIUM LEVEL 143 MEQ/L (136-145)
[2016-04-28] MEDS: HEPARIN SOD (PORCINE) 5000 UNITS/ML VIAL SC SCH ×3 (05:56→21:37)
[2016-04-28] MEDS: SLF 3 ML SYR IV SCH ×3 (05:56→21:37)
[2016-04-28] MEDS: FLUTICASONE HFA 44 MCG 10.6GM INHALER (FLOVENT) INH SCH ×2 (08:44→19:37)
--- NOTE | 2016-04-28 08:45 | IPNPDOC ---
Subjective General Date Seen The patient was seen on 04/28/16. Subjective Chief Complaint/HPI The patient is a 30-year-old male admitted with a reason for visit of Hypoxia; Pneumonia. Events since last encounter Pt nonverbal. Awake. General: Reports: ROS Unobtainable Objective Physical Examination General Exam: Positive: Alert, No Acute Distress Neck Exam: Positive: Supple, Negative: JVD Chest Exam: Positive: Diminished, Rhonchi, Wheezing Heart Exam: Positive: Rate Normal, Regular Rhythm Abdomen Exam: Positive: Normal bowel sounds, Soft, Negative: Tenderness Extremity Exam: Negative: Edema Assessment /Plan Problems Problems: (1) Left upper lobe pneumonia Status: Acute Problem Specific Plan: Monitor Clinically Problem Text: 04/28 - Pulmonary following for acute hypoxic respiratory failure secondary to pneumonia and mucous plugging. He is currently on comfort flow at 25 liters with plans for further weaning. He is getting nasotracheal suctioning as needed to help with mucus clearance. He is getting chest physiotherapy (PT) to help with clearance. He is on IV Levaquin D7. 04/27- Pulmonary consulted yesterday for acute hypoxic respiratory failure secondary to pneumonia and mucous plugging. The patient was transferred to the ICU for closer monitoring. He is currently on comfort flow at 35 liters. He is getting nasotracheal suctioning as needed to help with mucus clearance. He is getting chest physiotherapy (PT) to help with clearance. He is on IV Levaquin D6. 04/26 - IV Levaquin D5. Requiring 15 L HF. 04/25/16 still requiring 10L HF O2 to maintain SaO2 92% (on NO O2 at home) Getting chest PT. IV Levaquin D4. 04/23/16 PCR resp panel-coronavirus Levaquin has completed 5 days, will d/c. patient O2 requirements improving but desats with meals and so may need PEG. (2) Seizure disorder Status: Chronic Problem Specific Plan: Monitor Clinically Problem Text: On Depakote. No recent seizures. Monitor closely as pt is on Levaquin. (3) Cerebral palsy Status: Chronic Problem Specific Plan: Monitor Clinically Problem Text: Stable. (4) Restrictive lung disease Status: Chronic Problem Specific Plan: Monitor Clinically Problem Text: Pulmonary consulted. Plan/VTE VTE Prophylaxis Ordered?: Yes VS, I&O, 24H, Fishbone Vital Signs/I&O Vital Signs Date Time Temp Pulse Resp B/P Pulse Ox O2 Delivery O2 Flow Rate FiO2 04/28/16 06:00 85 22 112/67 96 Comfort Flow 30.0 04/28/16 04:00 98.4 04/26/16 11:00 25 I&O- Last 24 Hours up to 6 AM 04/28/16 06:00 Intake Total 55 ml Balance 55 ml Laboratory Data 24H LABS Laboratory Tests 2 04/27/16 19:29: Arterial Blood pH 7.396, Arterial Blood Partial Pressure CO2 50.8H, Arterial Blood Partial Pressure O2 87.1, Arterial Blood Total CO2 32.0H, Arterial Blood HCO3 30.5H, Arterial Blood Base Excess 4.5H, Arterial Blood Oxygen Saturation 96.8, Arterial Blood Gas Puncture Site LT RADIAL, Blood Gas Bicarbonate Standard 28.5H 04/28/16 04:12: Anion Gap 8, Blood Urea Nitrogen 22H, Creatinine 0.59L, Sodium Level 143, Potassium Level 3.9, Chloride Level 104, Carbon Dioxide Level 31, Calcium Level 9.3, Glomerular Filtration Rate > 60.0, Magnesium Level 2.4 CBC/BMP Laboratory Tests 04/28/16 04:12 Calcium Level 9.3, Red Blood Count 4.15 L, Mean Corpuscular Volume 91.0, Mean Corpuscular Hemoglobin 30.0, Mean Corpuscular Hemoglobin Concent 33.0, Red Cell Distribution Width 13.1 Microbiology Microbiology 04/22/16 Blood Culture - Final, Complete NO GROWTH AFTER 5 DAYS 04/22/16 Blood Culture - Final, Complete NO GROWTH AFTER 5 DAYS 04/26/16 Gram Stain - Final, Resulted 04/26/16 Sputum Culture, Resulted Pending 04/26/16 MRSA Screen - Final, Complete 04/23/16 Respiratory Virus Panel (PCR) ([facility]) - Final, Complete Coronavirus Oc43 Attending Note Attending Note Patient seen, note reviewed. agree with findings and plan as amended. Fidel Holm Apr 28, 2016 08:45 Jermaine Serra MD Apr 28, 2016 15:33
[2016-04-28] MEDS: D5W IV SCH (10:16)
[2016-04-28] MEDS: PANTOPRAZOLE 40MG INJ (PROTONIX) (C9113) IV SCH (10:16)
[2016-04-28] MEDS: VALPROATE SOD IV SCH (10:16)
[2016-04-28] MEDS: PARoxetine 10MG TABLET PO SCH ×2 (10:33→21:37)
[2016-04-28] MEDS: MIRALAX *UNIT DOSE* 17GM PACKET PO SCH (10:33)
[2016-04-28] MEDS: LACTOBACILLUS ACIDOPHILUS CAP (BACID) PO SCH ×3 (10:33→19:25)
[2016-04-28] MEDS: SENOKOT S TAB PO SCH ×2 (10:33→21:37)
[2016-04-28] MEDS: clonazePAM 1 MG TAB PO SCH (21:37)
[2016-04-28] MEDS: tiZANidine 4 MG TAB PO SCH (21:37)
[2016-04-28] MEDS: VALPROATE SOD INJ 500 MG in D5W 50 ML IV SCH (21:38)
[2016-04-29] VITALS (8 sets, daily range): BP systolic 115–132; BP diastolic 73–88; O2SAT 93–94
[2016-04-29] MEDS: IPRATROPIUM 0.5MG/ALBUTEROL 2.5MG INH SOL UD 3ML (DUONEB)(J7620) NEB SCH ×4 (01:58→20:37)
[2016-04-29 05:17] LABS: MEAN CORPUSCULAR HEMOGLOBIN 30.1 pg (27.0-33.0); MEAN CORPUSCULAR HGB CONC 33.7 g/dl (32.0-36.5); MEAN CORPUSCULAR VOLUME 89.5 fl (80.0-96.0); RED CELL DISTRIBUTION WIDTH 12.9 % (11.5-14.5); WHITE BLOOD COUNT 7.7 K/mm3 (4.0-10.0)
[2016-04-29 05:39] LABS: ANION GAP 7 MEQ/L (8-16); BLOOD UREA NITROGEN 23 MG/DL (7-18); CALCIUM LEVEL 9.1 MG/DL (8.5-10.1); CARBON DIOXIDE LEVEL 32 MEQ/L (21-32); CHLORIDE LEVEL 103 MEQ/L (98-107); CREATININE FOR GFR 0.56 MG/DL (0.70-1.30); GLOMERULAR FILTRATION RATE > 60.0 (>60); GLUCOSE, FASTING 101 MG/DL (70-105); MAGNESIUM LEVEL 2.3 MG/DL (1.8-2.4); POTASSIUM SERUM 3.7 MEQ/L (3.5-5.1); SODIUM LEVEL 142 MEQ/L (136-145)
[2016-04-29] MEDS: HEPARIN SOD (PORCINE) 5000 UNITS/ML VIAL SC SCH ×3 (05:57→21:17)
[2016-04-29] MEDS: SLF 3 ML SYR IV SCH ×3 (05:57→21:17)
--- NOTE | 2016-04-29 07:21 | IPNPDOC ---
Subjective General Date Seen The patient was seen on 04/29/16. Subjective Chief Complaint/HPI The patient is a 30-year-old male admitted with a reason for visit of Hypoxia; Pneumonia. Events since last encounter Continues with high flow oxygen. weaned to 10LNC overnight, back up to 25% at this time. General: Reports: ROS Unobtainable Objective Physical Examination General Exam: Positive: Alert, No Acute Distress Neck Exam: Positive: Supple, Negative: JVD Chest Exam: Positive: Diminished, Rhonchi (apices. ) Heart Exam: Positive: Rate Normal, Regular Rhythm Abdomen Exam: Positive: Normal bowel sounds, Soft, Negative: Tenderness Extremity Exam: Negative: Edema Psych Exam: Positive: Mental status NL (attentive cooperative) Assessment /Plan Problems Problems: (1) Left upper lobe pneumonia Status: Acute Problem Specific Plan: Monitor Clinically Problem Text: 04/29 - Pulmonary following for acute hypoxic respiratory failure secondary to pneumonia and mucous plugging. He is currently on comfort flow at 25 liters with plans for further weaning. He is getting nasotracheal suctioning as needed to help with mucus clearance. He is getting chest physiotherapy (PT) to help with clearance. He is on IV Levaquin D8 04/28 - Pulmonary following for acute hypoxic respiratory failure secondary to pneumonia and mucous plugging. He is currently on comfort flow at 25 liters with plans for further weaning. He is getting nasotracheal suctioning as needed to help with mucus clearance. He is getting chest physiotherapy (PT) to help with clearance. He is on IV Levaquin D7. 04/27- Pulmonary consulted yesterday for acute hypoxic respiratory failure secondary to pneumonia and mucous plugging. The patient was transferred to the ICU for closer monitoring. He is currently on comfort flow at 35 liters. He is getting nasotracheal suctioning as needed to help with mucus clearance. He is getting chest physiotherapy (PT) to help with clearance. He is on IV Levaquin D6. 04/26 - IV Levaquin D5. Requiring 15 L HF. 04/25/16 still requiring 10L HF O2 to maintain SaO2 92% (on NO O2 at home) Getting chest PT. IV Levaquin D4. 04/23/16 PCR resp panel-coronavirus Levaquin has completed 5 days, will d/c. patient O2 requirements improving but desats with meals and so may need PEG. (2) Seizure disorder Status: Chronic Problem Specific Plan: Monitor Clinically Problem Text: On Depakote. No recent seizures. Monitor closely as pt is on Levaquin. (3) Cerebral palsy Status: Chronic Problem Specific Plan: Monitor Clinically Problem Text: Stable. (4) Restrictive lung disease Status: Chronic Problem Specific Plan: Monitor Clinically Problem Text: Pulmonary consulted. Plan/VTE VTE Prophylaxis Ordered?: Yes VS, I&O, 24H, Fishbone Vital Signs/I&O Vital Signs Date Time Temp Pulse Resp B/P Pulse Ox O2 Delivery O2 Flow Rate FiO2 04/29/16 06:00 96 22 91 Comfort Flow 25.0 04/29/16 04:00 98.0 118/73 04/26/16 11:00 25 I&O- Last 24 Hours up to 6 AM 04/29/16 06:00 Intake Total 1128 ml Balance 1128 ml Laboratory Data 24H LABS Laboratory Tests 2 04/29/16 04:53: Anion Gap 7L, Blood Urea Nitrogen 23H, Creatinine 0.56L, Sodium Level 142, Potassium Level 3.7, Chloride Level 103, Carbon Dioxide Level 32, Calcium Level 9.1, Glomerular Filtration Rate > 60.0, Magnesium Level 2.3 CBC/BMP Laboratory Tests 04/29/16 04:53 Calcium Level 9.1, Red Blood Count 4.21 L, Mean Corpuscular Volume 89.5, Mean Corpuscular Hemoglobin 30.1, Mean Corpuscular Hemoglobin Concent 33.7, Red Cell Distribution Width 12.9 Microbiology Microbiology 04/22/16 Blood Culture - Final, Complete NO GROWTH AFTER 5 DAYS 04/22/16 Blood Culture - Final, Complete NO GROWTH AFTER 5 DAYS 04/26/16 Gram Stain - Final, Complete 04/26/16 Sputum Culture - Final, Complete 04/26/16 MRSA Screen - Final, Complete 04/23/16 Respiratory Virus Panel (PCR) ([facility]) - Final, Complete Coronavirus Oc43 Ayla Orosco Apr 29, 2016 07:21
[2016-04-29] MEDS: FLUTICASONE HFA 44 MCG 10.6GM INHALER (FLOVENT) INH SCH ×2 (08:21→20:37)
[2016-04-29] MEDS: LACTOBACILLUS ACIDOPHILUS CAP (BACID) PO SCH ×3 (08:26→17:21)
[2016-04-29] MEDS: D5W IV SCH (08:27)
[2016-04-29] MEDS: PARoxetine 10MG TABLET PO SCH ×2 (08:27→20:11)
[2016-04-29] MEDS: VALPROATE SOD IV SCH (08:27)
[2016-04-29] MEDS: SENOKOT S TAB PO SCH ×2 (08:27→20:11)
[2016-04-29] MEDS: PANTOPRAZOLE 40MG INJ (PROTONIX) (C9113) IV SCH (08:28)
[2016-04-29] MEDS: MIRALAX *UNIT DOSE* 17GM PACKET PO SCH (08:29)
[2016-04-29] MEDS: tiZANidine 4 MG TAB PO SCH (20:11)
[2016-04-29] MEDS: DIVALPROEX SPRINKLE 125 MG CAP PO SCH (20:11)
[2016-04-30] VITALS (8 sets, daily range): BP systolic 99–129; BP diastolic 58–75; O2SAT 91–97
[2016-04-30] MEDS: IPRATROPIUM 0.5MG/ALBUTEROL 2.5MG INH SOL UD 3ML (DUONEB)(J7620) NEB SCH ×4 (01:49→21:20)
[2016-04-30] MEDS: SLF 3 ML SYR IV SCH ×3 (05:17→21:39)
[2016-04-30] MEDS: HEPARIN SOD (PORCINE) 5000 UNITS/ML VIAL SC SCH ×3 (05:17→21:39)
[2016-04-30] MEDS: LACTOBACILLUS ACIDOPHILUS CAP (BACID) PO SCH ×3 (08:00→18:00)
--- NOTE | 2016-04-30 08:06 | IPNPDOC ---
Subjective General Date Seen The patient was seen on 04/30/16. Subjective Chief Complaint/HPI The patient is a 30-year-old male admitted with a reason for visit of Hypoxia; Pneumonia. Events since last encounter Pt non verbal. Awake. General: Reports: ROS Unobtainable Objective Physical Examination General Exam: Positive: Alert, No Acute Distress Neck Exam: Positive: Supple, Negative: JVD Chest Exam: Positive: Diminished, Rhonchi Heart Exam: Positive: Rate Normal, Regular Rhythm Abdomen Exam: Positive: Normal bowel sounds, Soft, Negative: Tenderness Extremity Exam: Negative: Edema Psych Exam: Positive: Mental status NL (attentive cooperative) Assessment /Plan Problems Problems: (1) Left upper lobe pneumonia Status: Acute Problem Specific Plan: Monitor Clinically Problem Text: 04/30 - Pulmonary following for acute hypoxic respiratory failure secondary to pneumonia and mucous plugging. He is currently on comfort flow at 10 liters with plans for further weaning. He is getting nasotracheal suctioning as needed to help with mucus clearance. He is getting chest physiotherapy (PT) to help with clearance. He is on IV Levaquin D9 04/29 - Pulmonary following for acute hypoxic respiratory failure secondary to pneumonia and mucous plugging. He is currently on comfort flow at 25 liters with plans for further weaning. He is getting nasotracheal suctioning as needed to help with mucus clearance. He is getting chest physiotherapy (PT) to help with clearance. He is on IV Levaquin D8 04/28 - Pulmonary following for acute hypoxic respiratory failure secondary to pneumonia and mucous plugging. He is currently on comfort flow at 25 liters with plans for further weaning. He is getting nasotracheal suctioning as needed to help with mucus clearance. He is getting chest physiotherapy (PT) to help with clearance. He is on IV Levaquin D7. 04/27- Pulmonary consulted yesterday for acute hypoxic respiratory failure secondary to pneumonia and mucous plugging. The patient was transferred to the ICU for closer monitoring. He is currently on comfort flow at 35 liters. He is getting nasotracheal suctioning as needed to help with mucus clearance. He is getting chest physiotherapy (PT) to help with clearance. He is on IV Levaquin D6. 04/26 - IV Levaquin D5. Requiring 15 L HF. 04/25/16 still requiring 10L HF O2 to maintain SaO2 92% (on NO O2 at home) Getting chest PT. IV Levaquin D4. 04/23/16 PCR resp panel-coronavirus Levaquin has completed 5 days, will d/c. patient O2 requirements improving but desats with meals and so may need PEG. (2) Seizure disorder Status: Chronic Problem Specific Plan: Monitor Clinically Problem Text: On Depakote. No recent seizures. Monitor closely as pt is on Levaquin. (3) Cerebral palsy Status: Chronic Problem Specific Plan: Monitor Clinically Problem Text: Stable. (4) Restrictive lung disease Status: Chronic Problem Specific Plan: Monitor Clinically Problem Text: Pulmonary consulted. Plan/VTE VTE Prophylaxis Ordered?: Yes VS, I&O, 24H, Fishbone Vital Signs/I&O Vital Signs Date Time Temp Pulse Resp B/P Pulse Ox O2 Delivery O2 Flow Rate FiO2 04/30/16 04:01 97.6 81 24 110/68 95 Comfort Flow 10.0 04/26/16 11:00 25 I&O- Last 24 Hours up to 6 AM 04/30/16 06:00 Intake Total 1493 ml Balance 1493 ml Laboratory Data Microbiology Microbiology 04/22/16 Blood Culture - Final, Complete NO GROWTH AFTER 5 DAYS 04/22/16 Blood Culture - Final, Complete NO GROWTH AFTER 5 DAYS 04/26/16 Gram Stain - Final, Complete 04/26/16 Sputum Culture - Final, Complete 04/26/16 MRSA Screen - Final, Complete 04/23/16 Respiratory Virus Panel (PCR) ([facility]) - Final, Complete Coronavirus Oc43 Attending Note Attending Note Patient seen and examined. Family requesting to advance diet. Currently on puree as recommended by speech therapy, but with family request will advance to mech soft diet. Fidel Holm RPA-Katerina Apr 30, 2016 08:06 Jermaine Serra MD Apr 30, 2016 10:11
[2016-04-30] MEDS: FLUTICASONE HFA 44 MCG 10.6GM INHALER (FLOVENT) INH SCH ×2 (08:09→21:20)
[2016-04-30] MEDS: DIVALPROEX SPRINKLE 125 MG CAP PO SCH ×2 (10:30→20:17)
[2016-04-30] MEDS: SENOKOT S TAB PO SCH ×2 (10:30→20:17)
[2016-04-30] MEDS: MIRALAX *UNIT DOSE* 17GM PACKET PO SCH (10:30)
[2016-04-30] MEDS: PARoxetine 10MG TABLET PO SCH ×2 (10:30→20:16)
[2016-04-30] MEDS: clonazePAM 1 MG TAB PO SCH (20:16)
[2016-04-30] MEDS: tiZANidine 4 MG TAB PO SCH (20:17)
[2016-05-01] VITALS: BP 108/60
[2016-05-01 02:24] VITALS: O2SAT 93
[2016-05-01] MEDS: IPRATROPIUM 0.5MG/ALBUTEROL 2.5MG INH SOL UD 3ML (DUONEB)(J7620) NEB SCH ×4 (02:33→20:10)
[2016-05-01 04:00] VITALS: BP 109/65
[2016-05-01 04:35] LABS: BASO % 0.3 % (0.0-1.0); EOS # 0.3 K/mm3 (0.0-0.50); LARGE UNSTAINED CELL # 0.2 K/mm3 (0.0-0.4); LARGE UNSTAINED CELL % 3.2 % (0.0-4.0); LYMPH # 2.1 K/mm3 (1.5-6.5); LYMPH % 31.3 % (24.0-44.0); MEAN CORPUSCULAR HEMOGLOBIN 29.6 pg (27.0-33.0); MEAN CORPUSCULAR VOLUME 89.8 fl (80.0-96.0); MONO # 0.6 K/mm3 (0.0-0.8); NEUTROPHILS # 3.6 K/mm3 (1.8-7.7); NEUTROPHILS % 53.2 % (36.0-66.0); PLATELET COUNT, AUTOMATED 256 k/mm3 (150-450); RED CELL DISTRIBUTION WIDTH 12.6 % (11.5-14.5); WHITE BLOOD COUNT 6.8 K/mm3 (4.0-10.0)
[2016-05-01 04:58] LABS: ALBUMIN 3.2 GM/DL (3.2-5.2); ALBUMIN/GLOBULIN RATIO 0.67 (1.00-1.93); ALKALINE PHOSPHATASE 82 U/L (45-117); ALT/SGPT 47 U/L (12-78); ANION GAP 5 MEQ/L (8-16); AST/SGOT 23 U/L (15-37); BILIRUBIN,TOTAL 0.5 MG/DL (0.2-1.0); BLOOD UREA NITROGEN 15 MG/DL (7-18); CARBON DIOXIDE LEVEL 33 MEQ/L (21-32); CHLORIDE LEVEL 103 MEQ/L (98-107); CREATININE FOR GFR 0.45 MG/DL (0.70-1.30); GLOMERULAR FILTRATION RATE > 60.0 (>60); GLUCOSE, FASTING 106 MG/DL (70-105); POTASSIUM SERUM 3.8 MEQ/L (3.5-5.1); SODIUM LEVEL 141 MEQ/L (136-145)
[2016-05-01] MEDS: HEPARIN SOD (PORCINE) 5000 UNITS/ML VIAL SC SCH ×3 (05:09→22:56)
[2016-05-01] MEDS: SLF 3 ML SYR IV SCH ×3 (05:09→22:00)
[2016-05-01] MEDS: FLUTICASONE HFA 44 MCG 10.6GM INHALER (FLOVENT) INH SCH ×2 (07:29→20:10)
[2016-05-01 07:30] VITALS: O2SAT 90
[2016-05-01] MEDS: LACTOBACILLUS ACIDOPHILUS CAP (BACID) PO SCH ×3 (07:57→17:37)
--- NOTE | 2016-05-01 07:57 | IPNPDOC ---
Subjective General Date Seen The patient was seen on 05/01/16. Subjective Chief Complaint/HPI The patient is a 30-year-old male admitted with a reason for visit of Hypoxia; Pneumonia. Events since last encounter Pt sleeping. Pt is nonverbal. General: Reports: ROS Unobtainable Objective Physical Examination General Exam: Positive: Alert, No Acute Distress Neck Exam: Positive: Supple, Negative: JVD Chest Exam: Positive: Diminished (due to spinal deformity and restrictive lung disease.), Rhonchi Heart Exam: Positive: Normal S1, Normal S2, Rate Normal, Regular Rhythm Abdomen Exam: Positive: Normal bowel sounds, Soft, Negative: Tenderness Extremity Exam: Negative: Edema Psych Exam: Positive: Mental status NL (attentive cooperative; Mental status normal for this individual. Not expressively verbal.) Assessment /Plan Problems Problems: (1) Left upper lobe pneumonia Status: Acute Problem Specific Plan: Monitor Clinically Problem Text: 05/01 - Pulmonary following for acute hypoxic respiratory failure secondary to pneumonia and mucous plugging. He is currently on comfort flow at 10 liters with plans for further weaning. He is getting nasotracheal suctioning as needed to help with mucus clearance. He is getting chest physiotherapy (PT) to help with clearance. He is on IV Levaquin D10 04/30 - Pulmonary following for acute hypoxic respiratory failure secondary to pneumonia and mucous plugging. He is currently on comfort flow at 10 liters with plans for further weaning. He is getting nasotracheal suctioning as needed to help with mucus clearance. He is getting chest physiotherapy (PT) to help with clearance. He is on IV Levaquin D9 04/29 - Pulmonary following for acute hypoxic respiratory failure secondary to pneumonia and mucous plugging. He is currently on comfort flow at 25 liters with plans for further weaning. He is getting nasotracheal suctioning as needed to help with mucus clearance. He is getting chest physiotherapy (PT) to help with clearance. He is on IV Levaquin D8 04/28 - Pulmonary following for acute hypoxic respiratory failure secondary to pneumonia and mucous plugging. He is currently on comfort flow at 25 liters with plans for further weaning. He is getting nasotracheal suctioning as needed to help with mucus clearance. He is getting chest physiotherapy (PT) to help with clearance. He is on IV Levaquin D7. 04/27- Pulmonary consulted yesterday for acute hypoxic respiratory failure secondary to pneumonia and mucous plugging. The patient was transferred to the ICU for closer monitoring. He is currently on comfort flow at 35 liters. He is getting nasotracheal suctioning as needed to help with mucus clearance. He is getting chest physiotherapy (PT) to help with clearance. He is on IV Levaquin D6. 04/26 - IV Levaquin D5. Requiring 15 L HF. 04/25/16 still requiring 10L HF O2 to maintain SaO2 92% (on NO O2 at home) Getting chest PT. IV Levaquin D4. 04/23/16 PCR resp panel-coronavirus Levaquin has completed 5 days, will d/c. patient O2 requirements improving but desats with meals and so may need PEG. (2) Seizure disorder Status: Chronic Problem Specific Plan: Monitor Clinically Problem Text: On Depakote. No recent seizures. Monitor closely as pt is on Levaquin. (3) Cerebral palsy Status: Chronic Problem Specific Plan: Monitor Clinically Problem Text: Stable. 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 Plan/VTE VTE Prophylaxis Ordered?: Yes VS, [facility], [facility] Vital Signs Date Time Temp Pulse Resp B/P Pulse Ox O2 Delivery O2 Flow Rate FiO2 05/01/16 07:30 90 Nasal Cannula 10.0 05/01/16 04:00 98.6 84 24 109/65 04/26/16 11:00 25 I&O- Last 24 Hours up to 6 AM 05/01/16 06:00 Intake Total 640 ml Balance 640 ml Laboratory Data 24H LABS Laboratory Tests 2 05/01/16 04:08: Blood Urea Nitrogen 15, Creatinine 0.45L, Sodium Level 141, Potassium Level 3.8 , Chloride Level 103, Carbon Dioxide Level 33H, Calcium Level 9.0, Aspartate Amino Transf (AST/SGOT) 23, Alanine Aminotransferase (ALT/SGPT) 47, Alkaline Phosphatase 82, Total Bilirubin 0.5, Total Protein 8.0, Albumin 3.2, Albumin/ Globulin Ratio 0.67L, Anion Gap 5L, White Blood Count 6.8, Red Blood Count 4.26L , Hemoglobin 12.6L, Hematocrit 38.3L, Mean Corpuscular Volume 89.8, Mean Corpuscular Hemoglobin 29.6, Mean Corpuscular Hemoglobin Concent 33.0, Red Cell Distribution Width 12.6, Platelet Count 256, Neutrophils (%) (Auto) 53.2, Lymphocytes (%) (Auto) 31.3, Monocytes (%) (Auto) 8.0H, Eosinophils (%) (Auto) 4.0H, Basophils (%) (Auto) 0.3, Neutrophils # (Auto) 3.6, Lymphocytes # (Auto) 2.1, Monocytes # (Auto) 0.6, Eosinophils # (Auto) 0.3, Basophils # (Auto) 0.0, Glomerular Filtration Rate > 60.0, Large Unclassified Cells # 0.2, Large Unclassified Cells % 3.2 CBC/BMP Laboratory Tests 05/01/16 04:08 Calcium Level 9.0, Aspartate Amino Transf (AST/SGOT) 23, Alanine Aminotransferase (ALT/SGPT) 47, Alkaline Phosphatase 82, Total Bilirubin 0.5, Total Protein 8.0, Albumin 3.2, Red Blood Count 4.26 L, Mean Corpuscular Volume 89.8, Mean Corpuscular Hemoglobin 29.6, Mean Corpuscular Hemoglobin Concent 33.0 , Red Cell Distribution Width 12.6, Neutrophils (%) (Auto) 53.2, Lymphocytes (% ) (Auto) 31.3, Monocytes (%) (Auto) 8.0 H, Eosinophils (%) (Auto) 4.0 H, Basophils (%) (Auto) 0.3, Neutrophils # (Auto) 3.6, Lymphocytes # (Auto) 2.1, Monocytes # (Auto) 0.6, Eosinophils # (Auto) 0.3, Basophils # (Auto) 0.0 Microbiology Microbiology 04/22/16 Blood Culture - Final, Complete NO GROWTH AFTER 5 DAYS 04/22/16 Blood Culture - Final, Complete NO GROWTH AFTER 5 DAYS 04/26/16 Gram Stain - Final, Complete 04/26/16 Sputum Culture - Final, Complete 04/26/16 MRSA Screen - Final, Complete 04/23/16 Respiratory Virus Panel (PCR) ([facility]) - Final, Complete Coronavirus Oc43 Attending Note Attending Note Agree with findings and note by Mr. Holm. Fidel Holm May 01, 2016 07:57 Jermaine Serra MD May 01, 2016 13:28
[2016-05-01] MEDS: MIRALAX *UNIT DOSE* 17GM PACKET PO SCH (09:24)
[2016-05-01] MEDS: SENOKOT S TAB PO SCH ×2 (09:24→20:30)
[2016-05-01] MEDS: DIVALPROEX SPRINKLE 125 MG CAP PO SCH ×2 (09:25→20:30)
[2016-05-01] MEDS: PARoxetine 10MG TABLET PO SCH ×2 (09:25→20:30)
[2016-05-01 12:00] VITALS: BP 111/57
[2016-05-01 20:00] VITALS: BP 121/80
[2016-05-01] MEDS: clonazePAM 1 MG TAB PO SCH (20:30)
[2016-05-01] MEDS: tiZANidine 4 MG TAB PO SCH (20:31)
[2016-05-02] VITALS (9 sets, daily range): BP systolic 108–130; BP diastolic 58–92
[2016-05-02] MEDS: IPRATROPIUM 0.5MG/ALBUTEROL 2.5MG INH SOL UD 3ML (DUONEB)(J7620) NEB SCH ×4 (01:59→21:10)
[2016-05-02 04:53] LABS: BASO % 0.2 % (0.0-1.0); EOS # 0.3 K/mm3 (0.0-0.50); EOS % 3.8 % (0.0-3.0); LARGE UNSTAINED CELL # 0.3 K/mm3 (0.0-0.4); LARGE UNSTAINED CELL % 3.6 % (0.0-4.0); LYMPH # 2.6 K/mm3 (1.5-6.5); LYMPH % 31.9 % (24.0-44.0); MEAN CORPUSCULAR HEMOGLOBIN 29.1 pg (27.0-33.0); MEAN CORPUSCULAR HGB CONC 32.3 g/dl (32.0-36.5); MEAN CORPUSCULAR VOLUME 90.1 fl (80.0-96.0); MONO # 0.6 K/mm3 (0.0-0.8); MONO % 6.8 % (0.0-5.0); NEUTROPHILS # 4.3 K/mm3 (1.8-7.7); NEUTROPHILS % 53.7 % (36.0-66.0); PLATELET COUNT, AUTOMATED 219 k/mm3 (150-450); RED CELL DISTRIBUTION WIDTH 12.5 % (11.5-14.5); WHITE BLOOD COUNT 8.1 K/mm3 (4.0-10.0)
[2016-05-02 05:26] LABS: ALBUMIN 3.3 GM/DL (3.2-5.2); ALBUMIN/GLOBULIN RATIO 0.72 (1.00-1.93); ALKALINE PHOSPHATASE 86 U/L (45-117); ALT/SGPT 47 U/L (12-78); ANION GAP 7 MEQ/L (8-16); AST/SGOT 26 U/L (15-37); BILIRUBIN,TOTAL 0.4 MG/DL (0.2-1.0); BLOOD UREA NITROGEN 15 MG/DL (7-18); CALCIUM LEVEL 9.4 MG/DL (8.5-10.1); CARBON DIOXIDE LEVEL 31 MEQ/L (21-32); CHLORIDE LEVEL 102 MEQ/L (98-107); CREATININE FOR GFR 0.49 MG/DL (0.70-1.30); GLOMERULAR FILTRATION RATE > 60.0 (>60); GLUCOSE, FASTING 107 MG/DL (70-105); POTASSIUM SERUM 4.2 MEQ/L (3.5-5.1); SODIUM LEVEL 140 MEQ/L (136-145); TOTAL PROTEIN 7.9 GM/DL (6.4-8.2)
[2016-05-02] MEDS: SLF 3 ML SYR IV SCH ×2 (05:58→17:00)
[2016-05-02] MEDS: HEPARIN SOD (PORCINE) 5000 UNITS/ML VIAL SC SCH ×3 (05:58→22:00)
[2016-05-02] MEDS: FLUTICASONE HFA 44 MCG 10.6GM INHALER (FLOVENT) INH SCH ×2 (07:53→21:10)
--- NOTE | 2016-05-02 09:30 | IPNPDOC ---
Subjective General Date Seen The patient was seen on 05/02/16. Subjective Chief Complaint/HPI The patient is a 30-year-old male admitted with a reason for visit of Hypoxia; Pneumonia. Events since last encounter restless last evening per nursing staff General: Reports: Normal Appetite, ROS Unobtainable Constitutional: Denies: Chills, Fever, Night Sweats Pulmonary: Denies: Cough, Dyspnea Psych: Reports: Mood Normal Objective Physical Examination General Exam: Positive: Alert, No Acute Distress Neck Exam: Positive: Supple, Negative: JVD Chest Exam: Positive: Diminished (due to spinal deformity and restrictive lung disease.), Rhonchi Heart Exam: Positive: Normal S1, Normal S2, Rate Normal, Regular Rhythm Abdomen Exam: Positive: Normal bowel sounds, Soft, Negative: Tenderness Extremity Exam: Negative: Edema Psych Exam: Positive: Mental status NL (attentive cooperative; Mental status normal for this individual. Not expressively verbal.) Assessment /Plan Problems Problems: (1) Left upper lobe pneumonia Status: Acute Problem Specific Plan: Monitor Clinically Problem Text: 05/02/2016: no change. see plans below. 05/01 - Pulmonary following for acute hypoxic respiratory failure secondary to pneumonia and mucous plugging. He is currently on comfort flow at 10 liters with plans for further weaning. He is getting nasotracheal suctioning as needed to help with mucus clearance. He is getting chest physiotherapy (PT) to help with clearance. He is on IV Levaquin D10 04/30 - Pulmonary following for acute hypoxic respiratory failure secondary to pneumonia and mucous plugging. He is currently on comfort flow at 10 liters with plans for further weaning. He is getting nasotracheal suctioning as needed to help with mucus clearance. He is getting chest physiotherapy (PT) to help with clearance. He is on IV Levaquin D9 04/29 - Pulmonary following for acute hypoxic respiratory failure secondary to pneumonia and mucous plugging. He is currently on comfort flow at 25 liters with plans for further weaning. He is getting nasotracheal suctioning as needed to help with mucus clearance. He is getting chest physiotherapy (PT) to help with clearance. He is on IV Levaquin D8 04/28 - Pulmonary following for acute hypoxic respiratory failure secondary to pneumonia and mucous plugging. He is currently on comfort flow at 25 liters with plans for further weaning. He is getting nasotracheal suctioning as needed to help with mucus clearance. He is getting chest physiotherapy (PT) to help with clearance. He is on IV Levaquin D7. 04/27- Pulmonary consulted yesterday for acute hypoxic respiratory failure secondary to pneumonia and mucous plugging. The patient was transferred to the ICU for closer monitoring. He is currently on comfort flow at 35 liters. He is getting nasotracheal suctioning as needed to help with mucus clearance. He is getting chest physiotherapy (PT) to help with clearance. He is on IV Levaquin D6. 04/26 - IV Levaquin D5. Requiring 15 L HF. 04/25/16 still requiring 10L HF O2 to maintain SaO2 92% (on NO O2 at home) Getting chest PT. IV Levaquin D4. 04/23/16 PCR resp panel-coronavirus Levaquin has completed 5 days, will d/c. patient O2 requirements improving but desats with meals and so may need PEG. (2) Seizure disorder Status: Chronic Problem Specific Plan: Monitor Clinically Problem Text: On Depakote. No recent seizures. Monitor closely as pt is on Levaquin. (3) Cerebral palsy Status: Chronic Problem Specific Plan: Monitor Clinically Problem Text: Stable. 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 Plan/VTE VTE Prophylaxis Ordered?: Yes VS, I&O, 24H, [facility] Vital Signs/I&O Vital Signs Date Time Temp Pulse Resp B/P Pulse Ox O2 Delivery O2 Flow Rate FiO2 05/02/16 07:57 88 05/02/16 06:00 22 97 Comfort Flow 10.0 05/02/16 04:00 97.4 120/66 04/26/16 11:00 25 I&O- Last 24 Hours up to 6 AM 05/02/16 06:00 Intake Total 1500 ml Balance 1500 ml Laboratory Data 24H LABS Laboratory Tests 2 05/02/16 04:19: Blood Urea Nitrogen 15, Creatinine 0.49L, Sodium Level 140, Potassium Level 4.2 , Chloride Level 102, Carbon Dioxide Level 31, Calcium Level 9.4, Aspartate Amino Transf (AST/SGOT) 26, Alanine Aminotransferase (ALT/SGPT) 47, Alkaline Phosphatase 86, Total Bilirubin 0.4, Total Protein 7.9, Albumin 3.3, Albumin/ Globulin Ratio 0.72L, Anion Gap 7L, White Blood Count 8.1, Red Blood Count 4.49 , Hemoglobin 13.0L, Hematocrit 40.4L, Mean Corpuscular Volume 90.1, Mean Corpuscular Hemoglobin 29.1, Mean Corpuscular Hemoglobin Concent 32.3, Red Cell Distribution Width 12.5, Platelet Count 219, Neutrophils (%) (Auto) 53.7, Lymphocytes (%) (Auto) 31.9, Monocytes (%) (Auto) 6.8H, Eosinophils (%) (Auto) 3.8H, Basophils (%) (Auto) 0.2, Neutrophils # (Auto) 4.3, Lymphocytes # (Auto) 2.6, Monocytes # (Auto) 0.6, Eosinophils # (Auto) 0.3, Basophils # (Auto) 0.0, Glomerular Filtration Rate > 60.0, Large Unclassified Cells # 0.3, Large Unclassified Cells % 3.6 CBC/BMP Laboratory Tests 05/02/16 04:19 Calcium Level 9.4, Aspartate Amino Transf (AST/SGOT) 26, Alanine Aminotransferase (ALT/SGPT) 47, Alkaline Phosphatase 86, Total Bilirubin 0.4, Total Protein 7.9, Albumin 3.3, Red Blood Count 4.49, Mean Corpuscular Volume 90.1, Mean Corpuscular Hemoglobin 29.1, Mean Corpuscular Hemoglobin Concent 32.3 , Red Cell Distribution Width 12.5, Neutrophils (%) (Auto) 53.7, Lymphocytes (% ) (Auto) 31.9, Monocytes (%) (Auto) 6.8 H, Eosinophils (%) (Auto) 3.8 H, Basophils (%) (Auto) 0.2, Neutrophils # (Auto) 4.3, Lymphocytes # (Auto) 2.6, Monocytes # (Auto) 0.6, Eosinophils # (Auto) 0.3, Basophils # (Auto) 0.0 Microbiology Microbiology 04/22/16 Blood Culture - Final, Complete NO GROWTH AFTER 5 DAYS 04/22/16 Blood Culture - Final, Complete NO GROWTH AFTER 5 DAYS 04/26/16 Gram Stain - Final, Complete 04/26/16 Sputum Culture - Final, Complete 04/26/16 MRSA Screen - Final, Complete 04/23/16 Respiratory Virus Panel (PCR) ([facility]) - Final, Complete Coronavirus Oc43 Ayla Orosco [facility] May 02, 2016 09:30
[2016-05-02] MEDS: LACTOBACILLUS ACIDOPHILUS CAP (BACID) PO SCH ×3 (09:31→17:00)
[2016-05-02] MEDS: DIVALPROEX SPRINKLE 125 MG CAP PO SCH ×2 (09:32→20:02)
[2016-05-02] MEDS: SENOKOT S TAB PO SCH ×2 (09:32→20:02)
[2016-05-02] MEDS: MIRALAX *UNIT DOSE* 17GM PACKET PO SCH (09:32)
[2016-05-02] MEDS: PARoxetine 10MG TABLET PO SCH ×2 (09:32→20:03)
[2016-05-02] MEDS: clonazePAM 1 MG TAB PO SCH (20:03)
[2016-05-02] MEDS: tiZANidine 4 MG TAB PO SCH (20:03)
[2016-05-03] VITALS (8 sets, daily range): BP systolic 93–129; BP diastolic 52–88; O2SAT 88–92
[2016-05-03] MEDS: IPRATROPIUM 0.5MG/ALBUTEROL 2.5MG INH SOL UD 3ML (DUONEB)(J7620) NEB SCH ×4 (01:36→19:12)
[2016-05-03] MEDS: HEPARIN SOD (PORCINE) 5000 UNITS/ML VIAL SC SCH ×3 (05:11→21:29)
--- NOTE | 2016-05-03 07:20 | IPNPDOC ---
Subjective General Date Seen The patient was seen on 05/03/16. Subjective Chief Complaint/HPI The patient is a 30-year-old male admitted with a reason for visit of Hypoxia; Pneumonia. General: Reports: ROS Unobtainable Genitourinary: Denies: Dysuria Objective Physical Examination General Exam: Positive: Alert, No Acute Distress Neck Exam: Positive: Supple, Negative: JVD Chest Exam: Positive: Diminished (due to spinal deformity and restrictive lung disease.), Rhonchi Heart Exam: Positive: Normal S1, Normal S2, Rate Normal, Regular Rhythm Abdomen Exam: Positive: Normal bowel sounds, Soft, Negative: Tenderness Extremity Exam: Negative: Edema Psych Exam: Positive: Mental status NL (attentive cooperative; Mental status normal for this individual. Not expressively verbal.) Assessment /Plan Problems Problems: (1) Left upper lobe pneumonia Status: Acute Problem Specific Plan: Monitor Clinically Problem Text: IV levo D12 05/03/2016: High flow successfully weaned to 5L overnight. He is slowly improving -- remainder of plan as per below. 05/01 - Pulmonary following for acute hypoxic respiratory failure secondary to pneumonia and mucous plugging. He is currently on comfort flow at 10 liters with plans for further weaning. He is getting nasotracheal suctioning as needed to help with mucus clearance. He is getting chest physiotherapy (PT) to help with clearance. He is on IV Levaquin D10 04/26 - IV Levaquin D5. Requiring 15 L HF. 04/25/16 still requiring 10L HF O2 to maintain SaO2 92% (on NO O2 at home) 04/23/16 PCR resp panel-coronavirus (2) Recurrent pneumonia Status: Chronic Problem Text: In the context of CP, severe kyphoscoliosis, and seizure d/o. Aspiration should be considered and swallow eval may be warranted outpt. (3) Seizure disorder Status: Chronic Problem Specific Plan: Monitor Clinically Problem Text: On Depakote. No recent seizures. Monitor closely as pt is on Levaquin. (4) Cerebral palsy Status: Chronic Problem Specific Plan: Monitor Clinically Problem Text: Stable. (5) Restrictive lung disease Status: Chronic Response to Treatment: Stable (Congenital spinal deformity.) Problem Specific Plan: Monitor Clinically Problem Text: Pulmonary following. Plan/VTE VTE Prophylaxis Ordered?: Yes VS, I&O, 24H, Fishbone Vital Signs/I&O Vital Signs Date Time Temp Pulse Resp B/P Pulse Ox O2 Delivery O2 Flow Rate FiO2 05/03/16 06:00 20 97 Nasal Cannula 5.0 05/03/16 04:00 97.9 57 93/54 I&O- Last 24 Hours up to 6 AM 05/03/16 06:00 Intake Total 510 ml Output Total 0 ml Balance 510 ml Laboratory Data Microbiology Microbiology 04/26/16 Gram Stain - Final, Complete 04/26/16 Sputum Culture - Final, Complete 04/26/16 MRSA Screen - Final, Complete 04/23/16 Respiratory Virus Panel (PCR) (SY[facility]IA) - Final, Complete Coronavirus Oc43 GME ATTESTATION GME ATTESTATION My preceptor for this patient encounter was physically present in the building during the encounter and was fully available. As needed, all aspects of the patient interview, examination, medical decision making process, and medical care plan development were reviewed and approved by the preceptor. Preceptor is aware and concurs with the plan as stated in the body of this note and will attest to such by his/her cosignature. FLEX DONNELLY DO May 03, 2016 07:20 Billy Hughes M.D. May 03, 2016 13:19 Laboratory Data Microbiology Microbiology 04/26/16 Gram Stain - Final, Complete 04/26/16 Sputum Culture - Final, Complete 04/26/16 MRSA Screen - Final, Complete 04/23/16 Respiratory Virus Panel (PCR) (SYLVIA) - Final, Complete Coronavirus Oc43 GME ATTESTATION GME ATTESTATION My preceptor for this patient encounter was physically present in the building during the encounter and was fully available. As needed, all aspects of the patient interview, examination, medical decision making process, and medical care plan development were reviewed and approved by the preceptor. Preceptor is aware and concurs with the plan as stated in the body of this note and will attest to such by his/her cosignature. FLEX DONNELLY DO May 03, 2016 07:20
[2016-05-03] MEDS: FLUTICASONE HFA 44 MCG 10.6GM INHALER (FLOVENT) INH SCH ×2 (07:57→19:41)
[2016-05-03] MEDS: LACTOBACILLUS ACIDOPHILUS CAP (BACID) PO SCH ×3 (08:24→16:54)
[2016-05-03] MEDS: MIRALAX *UNIT DOSE* 17GM PACKET PO SCH (08:24)
[2016-05-03] MEDS: PARoxetine 10MG TABLET PO SCH ×2 (08:25→20:38)
[2016-05-03] MEDS: DIVALPROEX SPRINKLE 125 MG CAP PO SCH ×2 (08:25→20:38)
[2016-05-03] MEDS: SENOKOT S TAB PO SCH ×2 (08:25→20:38)
[2016-05-03] MEDS ORDERED: SODIUM CHLORIDE NASAL 0.65% SPRAY BTL (OCEAN) PRN (13:45)
[2016-05-03] MEDS: clonazePAM 1 MG TAB PO SCH (20:38)
[2016-05-03] MEDS: tiZANidine 4 MG TAB PO SCH (20:39)
[2016-05-04] VITALS: BP 115/64
[2016-05-04 01:52] VITALS: O2SAT 93
[2016-05-04] MEDS: IPRATROPIUM 0.5MG/ALBUTEROL 2.5MG INH SOL UD 3ML (DUONEB)(J7620) NEB SCH ×2 (01:53→08:38)
[2016-05-04 04:00] VITALS: BP 104/67
[2016-05-04 05:10] LABS: BASO % 0.3 % (0.0-1.0); EOS # 0.2 K/mm3 (0.0-0.50); EOS % 3.1 % (0.0-3.0); LARGE UNSTAINED CELL # 0.2 K/mm3 (0.0-0.4); LARGE UNSTAINED CELL % 2.2 % (0.0-4.0); LYMPH # 2.9 K/mm3 (1.5-6.5); LYMPH % 35.1 % (24.0-44.0); MEAN CORPUSCULAR HEMOGLOBIN 30.1 pg (27.0-33.0); MEAN CORPUSCULAR HGB CONC 33.3 g/dl (32.0-36.5); MEAN CORPUSCULAR VOLUME 90.4 fl (80.0-96.0); MONO # 0.7 K/mm3 (0.0-0.8); MONO % 8.7 % (0.0-5.0); NEUTROPHILS % 50.6 % (36.0-66.0); PLATELET COUNT, AUTOMATED 259 k/mm3 (150-450); WHITE BLOOD COUNT 7.8 K/mm3 (4.0-10.0)
[2016-05-04 05:23] LABS: ALBUMIN 3.5 GM/DL (3.2-5.2); ALBUMIN/GLOBULIN RATIO 0.83 (1.00-1.93); ALKALINE PHOSPHATASE 97 U/L (45-117); ALT/SGPT 51 U/L (12-78); ANION GAP 8 MEQ/L (8-16); AST/SGOT 20 U/L (15-37); BILIRUBIN,TOTAL 0.4 MG/DL (0.2-1.0); BLOOD UREA NITROGEN 15 MG/DL (7-18); CALCIUM LEVEL 9.4 MG/DL (8.5-10.1); CARBON DIOXIDE LEVEL 28 MEQ/L (21-32); CHLORIDE LEVEL 102 MEQ/L (98-107); CREATININE FOR GFR 0.52 MG/DL (0.70-1.30); GLOMERULAR FILTRATION RATE > 60.0 (>60); GLUCOSE, FASTING 113 MG/DL (70-105); POTASSIUM SERUM 4.1 MEQ/L (3.5-5.1); SODIUM LEVEL 138 MEQ/L (136-145); TOTAL PROTEIN 7.7 GM/DL (6.4-8.2)
[2016-05-04] MEDS: HEPARIN SOD (PORCINE) 5000 UNITS/ML VIAL SC SCH (06:37)
[2016-05-04 08:00] VITALS: BP 117/60
[2016-05-04] MEDS: MIRALAX *UNIT DOSE* 17GM PACKET PO SCH (08:32)
[2016-05-04] MEDS: PARoxetine 10MG TABLET PO SCH (08:32)
[2016-05-04] MEDS: LACTOBACILLUS ACIDOPHILUS CAP (BACID) PO SCH (08:32)
[2016-05-04] MEDS: SENOKOT S TAB PO SCH (08:32)
[2016-05-04] MEDS ORDERED: SENN1TAB2 PO (08:35)
[2016-05-04] MEDS: FLUTICASONE HFA 44 MCG 10.6GM INHALER (FLOVENT) INH SCH (08:39)
--- NOTE | 2016-05-04 09:04 | DS.PDOC ---
Discharge Summary General Date of Admission Apr 22, 2016 at 22:05 Date of Discharge May 04, 2016 Primary Care Physician: Kenneth Edwards MD Attending Physician: TIFF GREEN MD Discharge Summary PROCEDURES PERFORMED DURING STAY: [None.] COMPLICATIONS/CHIEF COMPLAINT: Hypoxia;Pneumonia ADMISSION DIAGNOSES: 1. Left Upper lobe Pneumonia 2. Hypoxia PRIMARY DISCHARGE DIAGNOSES: 1. Left Upper Lobe Pneumonia 2. Coronavirus 3. Hypoxia SECONDARY DIAGNOSES AT DISCHARGE: 1. Restrictive Lung Disease 2. Severe Kyphoscoliosis 3. Seizure disorder 4. Cerebral Palsy 5. Recurrent Pneumonia/Bronchitis HISTORY OF PRESENT ILLNESS: This is a 30-year-old male patient with underlying medical history of cerebral palsy, seizure disorder, history of recurrent pneumonia, patient has severe scoliosis, kyphosis due to cerebral palsy, subsequently has a lot of problems with restrictive lung disease, has a lot of problems clearing mucus, especially in the left lung. At baseline, the patient is bed-bound, going to [facility] from home, minimally verbal - one to two words, not on oxygen. The patient, as per family, returned from [facility] on Monday with some congestion. Subsequently, on Monday, the patient's symptoms got worse and progressively worsening, suctioning by family with clear mucus. The patient is not able to clear much of his mucus. He wears a vest for chest PT at home. No sick contact at home but possibly sick contact at [facility]. No fevers or chills reported by family. Not on oxygen at home. Requiring 40% Ventimask at emergency room. Further history not possible given the patient is nonverbal. Family denies noticing any diarrhea, nausea or vomiting. The patient is on grounded diet with thin liquid. HOSPITAL COURSE: Terry was admitted to the ICU for hypoxic respiratory failure and provided supplemental O2 via HFNC; he required up to 35L at one point but was successfully and gradually weaned to room air and was without supplemental O2 requirement for 18 hours prior to dc. He was initially placed on broad spectrum abx c Rocephin which was switched to Levaquin for CAP. Initial chest CT was significant for a fairly dense DOT infiltrate. RVP returned + for coronavirus, and abx were dc after 5 days. Terry underwent aggressive pulmonary toilet c chest PT, theravest, and aggressive suctioning. For this reason, he remained in the ICU throughout his admission. Gradually, his respiratory status improved and he was weaned from O2. At the time of discharge, he was at his baseline functioning and respiratory status. He experienced no acute issues with regards to his chronic medical conditions. DISCHARGE MEDICATIONS: Please see below. ALLERGIES: Please see below. PHYSICAL EXAMINATION ON DISCHARGE: VITAL SIGNS: Please see below. GENERAL: Alert, NAD HEENT: NC/AT. PERRLA. MMM, no drainage NECK: No LAD CARDIOVASCULAR EXAMINATION: RSR, no r/mg RESPIRATORY EXAMINATION: Mildly decreased at the bases but otherwise good air entry and aeration throughout. No crackles / rhonchi. ABDOMINAL EXAMINATION: SNTND BACK/TRUNK: Severe dextroscoliosis noted. EXTREMITIES: contractures noted in upper extremities SKIN: Warm, well-perfused. No rashes LABORATORY DATA: Please see below. IMAGING: DISCHARGE CONDITION: Stable, much improved. DISPOSITION: Home c parents ACTIVITY: Bedbound. DIET: As tolerated. ITEMS TO FOLLOWUP ON OUTPATIENT: 1. Depakote level on the day after d/c 2. He's had multiple episodes of recurrent pneumonia and bronchitis in the setting of cerebral palsy and severe kyphoscoliosis. Consideration should be made for swallowing evaluation to assess for possible aspiration. DISCHARGE PLAN AND INSTRUCTIONS: 1. . 2. . 3. . TIME SPENT ON DISCHARGE: Greater than 45 minutes. Vital Signs/I&Os Vital Signs Date Time Temp Pulse Resp B/P Pulse Ox O2 Delivery O2 Flow Rate FiO2 05/04/16 08:00 98.0 77 18 117/60 91 Room Air 05/03/16 12:00 2.0 I&O- Last 24 Hours up to 6 AM 05/04/16 05:59 Intake Total 180 ml Output Total 0 ml Balance 180 ml Laboratory Data Labs 24H Laboratory Tests 2 05/04/16 04:35: Blood Urea Nitrogen 15, Creatinine 0.52L, Sodium Level 138, Potassium Level 4.1 , Chloride Level 102, Carbon Dioxide Level 28, Calcium Level 9.4, Aspartate Amino Transf (AST/SGOT) 20, Alanine Aminotransferase (ALT/SGPT) 51, Alkaline Phosphatase 97, Total Bilirubin 0.4, Total Protein 7.7, Albumin 3.5, Albumin/ Globulin Ratio 0.83L, Anion Gap 8, White Blood Count 7.8, Red Blood Count 4.36, Hemoglobin 13.2L, Hematocrit 39.5L, Mean Corpuscular Volume 90.4, Mean Corpuscular Hemoglobin 30.1, Mean Corpuscular Hemoglobin Concent 33.3, Red Cell Distribution Width 13.0, Platelet Count 259, Neutrophils (%) (Auto) 50.6, Lymphocytes (%) (Auto) 35.1, Monocytes (%) (Auto) 8.7H, Eosinophils (%) (Auto) 3.1H, Basophils (%) (Auto) 0.3, Neutrophils # (Auto) 4.0, Lymphocytes # (Auto) 2.9, Monocytes # (Auto) 0.7, Eosinophils # (Auto) 0.2, Basophils # (Auto) 0.0, Glomerular Filtration Rate > 60.0, Large Unclassified Cells # 0.2, Large Unclassified Cells % 2.2, Valproic Acid (Depakene) Level 105.6H CBC/BMP Laboratory Tests 05/04/16 04:35 Calcium Level 9.4, Aspartate Amino Transf (AST/SGOT) 20, Alanine Aminotransferase (ALT/SGPT) 51, Alkaline Phosphatase 97, Total Bilirubin 0.4, Total Protein 7.7, Albumin 3.5, Red Blood Count 4.36, Mean Corpuscular Volume 90.4, Mean Corpuscular Hemoglobin 30.1, Mean Corpuscular Hemoglobin Concent 33.3 , Red Cell Distribution Width 13.0, Neutrophils (%) (Auto) 50.6, Lymphocytes (% ) (Auto) 35.1, Monocytes (%) (Auto) 8.7 H, Eosinophils (%) (Auto) 3.1 H, Basophils (%) (Auto) 0.3, Neutrophils # (Auto) 4.0, Lymphocytes # (Auto) 2.9, Monocytes # (Auto) 0.7, Eosinophils # (Auto) 0.2, Basophils # (Auto) 0.0 Microbiology Microbiology 04/26/16 Gram Stain - Final, no organisms 04/26/16 Sputum Culture - Final, no growth 04/26/16 MRSA Screen - Final, Negative RVP: CORONAVIRUS OC43 Medications Scheduled (Senna Plus 8.6-50 mg) 1 Tab Tab 1 TAB PO BID Clonazepam (Klonopin) 2 Mg Tab 2 MG PO QHS Divalproex Sodium (Depakote Sprinkles) 125 Mg Cap 375 MG PO DAILY Divalproex Sodium (Depakote Sprinkles) 125 Mg Cap 500 MG PO QHS Fluticasone Propionate (Flovent Hfa 44 MCG) 120 Puff/10.6 Gm Aero 2 PUFF INH BID Paroxetine Hydrochloride (Paxil) 10 Mg Tab 10 MG PO BID Tizanidine Hydrochloride (Zanaflex) 2 Mg Cap 2 MG PO QHS Scheduled PRN Acetaminophen (Acetaminophen) 650 Mg Supp 650 MG OH Q6H PRN PRN PAIN / FEVER Albuterol Sulfate (Albuterol Sulfate) 2.5 Mg/3 Ml Nebu 2.5 MG INH Q4H PRN PRN SHORTNESS OF BREATH Albuterol Sulfate (Proair Hfa) 108 Mcg/Act Aer 2 PUFF INH Q4H PRN PRN SHORTNESS OF BREATH Albuterol/Ipratropium (Ipratropium Potter/Albut 0.5-2.5 (3) mg/3Ml) 1 [place] 1 [place] INH Q4H PRN PRN SHORTNESS OF BREATH Polyethylene Glycol (Miralax) 1 Pow Pow 17 GM PO DAILY PRN PRN CONSTIPATION Allergies Coded Allergies: Aspartame (Verified Allergy, Severe, 05/04/13) Mushroom (Verified Allergy, Mild, HIVES AND NAUSEA, 05/04/13) TROPICAL FRUIT (Verified Allergy, Mild, HIVES, 05/04/13) Cephalosporins (Verified Allergy, Unknown, 04/22/16) Difficulty breathing & severe hives/rash Contrast Media (Verified Allergy, Unknown, 05/04/13) Peanut (Verified Allergy, Unknown, 05/06/13) SEAFOOD (Verified Allergy, Unknown, 05/04/13) Amoxicillin (Unverified Adverse Reaction, Mild, Vomiting, 04/26/16) Clavulanic Acid (Unverified Adverse Reaction, Mild, Vomiting, 04/26/16) Sulfamethoxazole w/Trimethoprim (Unverified Adverse Reaction, Mild, Vomiting, 04/26/16) FLEX DONNELLY DO May 04, 2016 09:03
== END 2016-05-04 12:00 | disposition home health service (06) | DRG 193 ==
LOC: M ED 18:23 → M ED INP 22:05 → M PCU 04-23 01:42 → M ICU 04-26 11:24
PROVIDERS: ADMIT Hospitalist; ATTEND Family Medicine
DX: J15.9 Unspecified bacterial pneumonia (principal); J96.01 Acute respiratory failure with hypoxia; J98.4 Other disorders of lung; G80.9 Cerebral palsy, unspecified; M40.209 Unspecified kyphosis, site unspecified; R00.0 Tachycardia, unspecified; K59.00 Constipation, unspecified; J42 Unspecified chronic bronchitis; G40.909 Epilepsy, unspecified, not intractable, without status epilepticus; F41.9 Anxiety disorder, unspecified; B97.29 Other coronavirus as the cause of diseases classified elsewhere; F32.9 Major depressive disorder, single episode, unspecified; Z87.01 Personal history of pneumonia (recurrent); Z96.641 Presence of right artificial hip joint; Z96.653 Presence of artificial knee joint, bilateral; Z79.899 Other long term (current) drug therapy; Z88.0 Allergy status to penicillin; Z88.1 Allergy status to other antibiotic agents; Z91.010 Allergy to peanuts; Z91.013 Allergy to seafood; Z91.018 Allergy to other foods

== ENCOUNTER → 2016-04-22 | Outpatient (CLI) | payer MEDICARE, MEDICAID ==
[~2016-04-22] MED LIST changes: +ACET65SU PR; +ALBU83IN INH; +DEPA125C PO; +FLUT44IN INH; +IPRASOL4 INH; +KLON2TAB PO; +MIRA33504 PO; +PAXI10TA2 PO; +PROA1AER INH; +ZANA2CAP PO
--- NOTE | 2016-04-22 19:40 | REP ---
Chest x-ray: Two views: History: Wheezing. Findings: There is profound rotoscoliosis. On the frontal view I do not see any aerated lung on the left side. The right lung is aerated. Impression: There is profound rotoscoliosis with limited visualization of the lungs as a result. Completely opacified left hemithorax today. Question mucous plugging and left lung atelectasis. Signed by Dylon Degroot MD 04/23/2016 10:04 A
== END ==
LOC: M ADAMS 03-29 14:48
PROVIDERS: ATTEND Nurse Practitioner Family
DX: J98.4 Other disorders of lung (principal); R50.9 Fever, unspecified; R05 Cough

== ENCOUNTER → 2016-05-04 | Outpatient (REF) | payer MEDICARE, MEDICAID ==
[~2016-05-04] MED LIST changes: +ACET65SU PR; +ALBU83IN INH; +DEPA125C PO; +FLUT44IN INH; +IPRASOL4 INH; +KLON2TAB PO; +MIRA33504 PO; +PAXI10TA2 PO; +PROA1AER INH; +SENN1TAB2 PO; +ZANA2CAP PO
== END | disposition home or self-care (01) ==
LOC: M SFHCPLAZ 10:57
PROVIDERS: ATTEND Physician Assistant
DX: Z53.8 Procedure and treatment not carried out for other reasons (principal); G40.909 Epilepsy, unspecified, not intractable, without status epilepticus

== ENCOUNTER → 2016-05-05 | Outpatient (CLI) | payer MEDICARE, MEDICAID | END | disposition home or self-care (01) | LOC: M LAB 14:59 | PROVIDERS: ATTEND Physician Assistant | DX: G40.909 Epilepsy, unspecified, not intractable, without status epilepticus (principal) ==

== ENCOUNTER → 2016-05-09 | Outpatient (REF) | payer MEDICARE, MEDICAID | LOC: M SFHCPLAZ 09:02 | PROVIDERS: ATTEND Family Medicine | DX: Z51.81 Encounter for therapeutic drug level monitoring (principal); Z79.899 Other long term (current) drug therapy ==

== ENCOUNTER → 2016-05-12 | Outpatient (REF) | payer MEDICARE, MEDICAID | LOC: M LAB REF 16:18 | PROVIDERS: ATTEND Physician Assistant | DX: G40.909 Epilepsy, unspecified, not intractable, without status epilepticus (principal) ==

== ENCOUNTER → 2016-05-16 | Outpatient (REF) | payer MEDICARE, MEDICAID | LOC: M LABDRAW1 11:43 | PROVIDERS: ATTEND Physician Assistant | DX: G40.909 Epilepsy, unspecified, not intractable, without status epilepticus (principal) ==

== ENCOUNTER 2017-03-08 21:56 | Emergency (ER) | payer MEDICARE, MEDICAID ==
[2017-03-08 23:52] LABS: BASO # 0.1 10^3/uL (0.0-0.2); BASO % 0.3 % (0.0-1.0); EOS % 0.1 % (0.0-3.0); IMMATURE GRANULOCYTE # 0.1 10^3/uL (0-0); IMMATURE GRANULOCYTE % 0.3 % (0-0); LYMPH # 1.7 10^3/uL (1.5-4.5); MEAN CORPUSCULAR HEMOGLOBIN 29.7 pg (27.0-33.0); MEAN CORPUSCULAR HGB CONC 34.3 g/dl (32.0-36.5); MEAN CORPUSCULAR VOLUME 86.6 fl (80.0-96.0); MONO % 17.2 % (0.0-5.0); NEUTROPHILS # 12.5 10^3/uL (1.8-7.7); NEUTROPHILS % 72.1 % (36.0-66.0); PLATELET COUNT, AUTOMATED 302 10^3/uL (150-450); RED CELL DISTRIBUTION WIDTH 13.2 % (11.5-14.5); WHITE BLOOD COUNT 17.3 10^3/uL (4.0-10.0)
[2017-03-09 00:10] LABS: ANION GAP 9 MEQ/L (8-16); BLOOD UREA NITROGEN 8 MG/DL (7-18); CALCIUM LEVEL 9.6 MG/DL (8.5-10.1); CARBON DIOXIDE LEVEL 26 MEQ/L (21-32); CHLORIDE LEVEL 101 MEQ/L (98-107); CREATININE FOR GFR 0.52 MG/DL (0.70-1.30); GLOMERULAR FILTRATION RATE > 60.0 (>60); GLUCOSE, FASTING 114 MG/DL (70-105); POTASSIUM SERUM 3.6 MEQ/L (3.5-5.1); SODIUM LEVEL 136 MEQ/L (136-145)
[2017-03-09 00:14] LABS: POSITIVE DIFF POS FLAG
[2017-03-09] MEDS: AMPICILLIN SOD/SULBACTAM SOD 3 GM in D5W MINI-BAG PLUS 100 ML IV (01:00)
== END 2017-03-09 02:18 | disposition home or self-care (01) ==
LOC: M ED 03-09 02:18
DX: L03.211 Cellulitis of face (principal); G80.9 Cerebral palsy, unspecified; F79 Unspecified intellectual disabilities
CPT/HCPCS: 70486

== ENCOUNTER → 2017-08-08 | Outpatient (REF) | payer MEDICARE, MEDICAID ==
[2017-08-08 18:51] LABS: BASO % 0.4 % (0.0-1.0); EOS # 0.3 10^3/uL (0.0-0.50); HEMATOCRIT 42.5 % (42.0-52.0); HEMOGLOBIN 14.2 g/dl (13.5-17.5); IMMATURE GRANULOCYTE % 0.3 % (0-3.0); LYMPH # 2.4 10^3/uL (1.5-4.5); MEAN CORPUSCULAR HEMOGLOBIN 29.2 pg (27.0-33.0); MEAN CORPUSCULAR HGB CONC 33.4 g/dl (32.0-36.5); MEAN CORPUSCULAR VOLUME 87.4 fl (80.0-96.0); MONO # 0.8 10^3/uL (0.0-0.8); MONO % 10.5 % (0.0-5.0); NEUTROPHILS # 4.3 10^3/uL (1.8-7.7); NEUTROPHILS % 54.8 % (36.0-66.0); PLATELET COUNT, AUTOMATED 277 10^3/uL (150-450); RED BLOOD COUNT 4.86 10^6/uL (4.30-6.10); RED CELL DISTRIBUTION WIDTH 13.2 % (11.5-14.5); WHITE BLOOD COUNT 7.8 10^3/uL (4.0-10.0)
[2017-08-08 19:00] LABS: ALBUMIN 3.7 GM/DL (3.2-5.2); ALBUMIN/GLOBULIN RATIO 0.86 (1.00-1.93); ALKALINE PHOSPHATASE 78 U/L (45-117); ALT/SGPT 13 U/L (12-78); ANION GAP 6 MEQ/L (8-16); AST/SGOT 7 U/L (7-37); BILIRUBIN,TOTAL 0.2 MG/DL (0.2-1.0); BLOOD UREA NITROGEN 11 MG/DL (7-18); CARBON DIOXIDE LEVEL 28 MEQ/L (21-32); CHLORIDE LEVEL 104 MEQ/L (98-107); CREATININE FOR GFR 0.45 MG/DL (0.70-1.30); GLOMERULAR FILTRATION RATE > 60.0 (>60); GLUCOSE, FASTING 65 MG/DL (70-100); POTASSIUM SERUM 4.3 MEQ/L (3.5-5.1); RHEUMATOID FACTOR QUANT < 10.0 IU/ML (<15.0); SODIUM LEVEL 138 MEQ/L (136-145); VALPROIC ACID (DEPAKOTE) 86.7 UG/ML (50.0-100.0)
[2017-08-08 19:41] LABS: ERYTHROCYTE SEDIMENTATION RATE 18 mm/hr (0-15)
[2017-08-09 10:22] LABS: PTT LUPUS TYPE ANTICOAG SCREEN 0.8 (0-1.2)
[2017-08-10 14:13] LABS: ANTINUCLEAR ANTIBODIES DIRECT Negative (Negative)
== END ==
LOC: M LABNEURO 15:23
DX: Z79.899 Other long term (current) drug therapy (principal); R51 Headache; G40.909 Epilepsy, unspecified, not intractable, without status epilepticus
CPT/HCPCS: 80164

== ENCOUNTER → 2017-10-31 | Outpatient (REF) | payer MEDICARE, MEDICAID | LOC: M LAB REF 19:41 | DX: J02.9 Acute pharyngitis, unspecified (principal) | CPT/HCPCS: 87081 ==

== ENCOUNTER → 2022-06-15 | Outpatient (REF) | payer MEDICARE, MEDICAID ==
[~2022-06-15] MED LIST changes: -/SENOSTA PO; +ALBU2.5V10 INH; -ALBU83IN INH; -DEPA125C PO; +DEPA1CAP PO; +IPRA0.00 INH; -IPRASOL4 INH; -LEVA750T PO; +LEVA750T7 PO; -MIRA255PW PO; +PAXI10TA13 PO; -PAXI10TA2 PO; +POLY1POW4 PO; -PROA1AER INH; +PROAAER10 INH; +SENN-53 PO; -SENN1TAB2 PO; +SENO1TAB PO
[2022-06-15 16:30] LABS: BASO % 0.3 % (0.0-1.0); EOS # 0.3 10^3/uL (0.0-0.5); EOS % 3.6 % (0.0-3.0); HEMATOCRIT 42.3 % (42.0-52.0); HEMOGLOBIN 13.5 g/dl (13.5-17.5); LYMPH # 1.6 10^3/uL (1.5-5.0); MEAN CORPUSCULAR HEMOGLOBIN 28.4 pg (27.0-33.0); MEAN CORPUSCULAR HGB CONC 31.9 g/dl (32.0-36.5); MEAN CORPUSCULAR VOLUME 89.1 fl (80.0-96.0); MONO # 1.1 10^3/uL (0.0-0.8); MONO % 11.9 % (2.0-8.0); NEUTROPHILS % 66.1 % (36.0-66.0); PLATELET COUNT, AUTOMATED 301 10^3/uL (150-450); RED BLOOD COUNT 4.75 10^6/uL (4.30-6.10); WHITE BLOOD COUNT 9.1 10^3/uL (4.0-10.0)
[2022-06-15 16:49] LABS: VALPROIC ACID (DEPAKOTE) 70.3 UG/ML (50.0-100.0)
[2022-06-15 16:51] LABS: ALBUMIN 3.6 G/DL (3.2-5.2); ALKALINE PHOSPHATASE 109 U/L (46-116); ALT/SGPT 14 U/L (7.0-40); AST/SGOT 12 U/L (<34); BILIRUBIN,TOTAL 0.3 MG/DL (0.3-1.2); BLOOD UREA NITROGEN 10 MG/DL (9-23); CALCIUM LEVEL 9.7 MG/DL (8.5-10.1); CARBON DIOXIDE LEVEL 27 MMOL/L (20-31); CHLORIDE LEVEL 99 MMOL/L (98-107); CREATININE FOR GFR 0.52 MG/DL (0.70-1.30); FREE T4 0.96 NG/DL (0.89-1.76); GLOMERULAR FILTRATION RATE > 60.0 (>60); GLUCOSE, FASTING 87 MG/DL (60-100); MAGNESIUM LEVEL 1.8 MG/DL (1.8-2.4); POTASSIUM SERUM 4.3 MMOL/L (3.5-5.1); SODIUM LEVEL 136 MMOL/L (136-145); THYROID STIMULATING HORMONE 2.033 uIU/ML (0.55-4.78)
== END ==
LOC: M SFHCADAM 13:24
PROVIDERS: ATTEND Family Medicine
DX: D72.829 Elevated white blood cell count, unspecified (principal); G40.909 Epilepsy, unspecified, not intractable, without status epilepticus; Z79.899 Other long term (current) drug therapy

== ENCOUNTER → 2023-07-03 | Outpatient (CLI) | payer MEDICARE, MEDICAID ==
[~2023-07-03] MED LIST changes: +CLON-952 PO; -KLON2TAB PO
[2023-07-03 12:07] LABS: ABG BASE EXCESS 0.5 (-2.0-2.0); ABG HCO3 25.3 MMOL/L (22.0-26.0); ABG O2 SATURATION 93.9 % (95.0-99.0); ABG PARTIAL PRESSURE CO2 41.2 mmHg (35.0-45.0); ABG PARTIAL PRESSURE O2 70.5 mmHg (75.0-100.0); ABG STANDARD HCO3 24.9 MMOL/L. (22.0-26.0); ABG TOTAL CO2 26.6 MMOL/L (22.0-29.0); ABG pH (ARTERIAL) 7.406 UNITS (7.350-7.450)
== END ==
LOC: M LAB 11:27
PROVIDERS: ATTEND Internal Medicine Pulmonary Disease
DX: G80.9 Cerebral palsy, unspecified (principal)

== ENCOUNTER → 2023-09-12 | Outpatient (REF) | payer MEDICARE, MEDICAID ==
[2023-09-12 18:49] LABS: VALPROIC ACID (DEPAKOTE) 91.6 UG/ML (50.0-100.0)
[2023-09-12 18:52] LABS: ALBUMIN 3.5 G/DL (3.2-5.2); ALKALINE PHOSPHATASE 89 U/L (46-116); ALT/SGPT 10 U/L (7.0-40); AST/SGOT 8 U/L (<34); BILIRUBIN,TOTAL 0.3 MG/DL (0.3-1.2); BLOOD UREA NITROGEN 8 MG/DL (9-23); CALCIUM LEVEL 9.5 MG/DL (8.5-10.1); CARBON DIOXIDE LEVEL 29 MMOL/L (20-31); CHLORIDE LEVEL 101 MMOL/L (98-107); CREATININE FOR GFR 0.46 MG/DL (0.70-1.30); GLOMERULAR FILTRATION RATE > 60.0 (>60); GLUCOSE, FASTING 79 MG/DL (60-100); POTASSIUM SERUM 4.9 MMOL/L (3.5-5.1); SODIUM LEVEL 135 MMOL/L (136-145); TOTAL PROTEIN 8.1 G/DL (5.7-8.2)
[2023-09-12 19:00] LABS: BASO % 0.4 % (0.0-1.0); EOS # 0.1 10^3/uL (0.0-0.5); EOS % 1.6 % (0.0-3.0); HEMATOCRIT 40.8 % (42.0-52.0); HEMOGLOBIN 13.6 g/dl (13.5-17.5); LYMPH # 1.8 10^3/uL (1.5-5.0); LYMPH % 21.9 % (24.0-44.0); MEAN CORPUSCULAR HEMOGLOBIN 29.1 pg (27.0-33.0); MEAN CORPUSCULAR HGB CONC 33.3 g/dl (32.0-36.5); MEAN CORPUSCULAR VOLUME 87.2 fl (80.0-96.0); MONO # 0.8 10^3/uL (0.0-0.8); MONO % 10.1 % (2.0-8.0); NEUTROPHILS # 5.4 10^3/uL (1.5-8.5); NEUTROPHILS % 65.8 % (36.0-66.0); PLATELET COUNT, AUTOMATED 215 10^3/uL (150-450); RED BLOOD COUNT 4.68 10^6/uL (4.30-6.10); WHITE BLOOD COUNT 8.2 10^3/uL (4.0-10.0)
== END ==
LOC: M LABDRWAD 17:29
PROVIDERS: ATTEND Psychiatry & Neurology Neurology
DX: R56.9 Unspecified convulsions (principal)